=== PATIENT | male | born 1975 | race Hispanic/Latino ===

== ENCOUNTER 2020-10-11 11:07 | Inpatient (IN) | payer BC ==
[2020-10-11] MEDS ORDERED: ONDANSETRON 4 MG/2 ML VIAL ONE (11:30)
[2020-10-11] MEDS ORDERED: MORPHINE 4 MG/ML SYR ONE (11:30)
[2020-10-11] MEDS ORDERED: FAMOTIDINE 20 MG/2 ML VIAL IV ONE (11:39)
[2020-10-11 11:44] LABS: Absolute Lymphocytes (CBC) 2.6 K/uL (0.7-4.9); Basophils % 1.2 % (0-1.3); Hematocrit 52.1 % (39.6-49.0); Lymphocytes % 18.8 % (15.3-44.8); MPV 8.4 fL (7.6-11.3); RBC Red Blood Cell Count 6.11 M/uL (4.33-5.43)
[2020-10-11 11:49] LABS: Protime INR 1.54
[2020-10-11] MEDS ORDERED: LORazepam 2 MG/ML VIAL ONE (12:04)
[2020-10-11] MEDS ORDERED: DIPHENHYDRAMINE 50 MG/ML VIAL ONE (12:05)
--- NOTE | 2020-10-11 13:08 | RAD REPORT ---
EXAM DESCRIPTION: RAD - Chest Single View - 10/11/2020 11:50 am CLINICAL HISTORY: chest pain, abdominal pain Chest pain. COMPARISON: No comparisons FINDINGS: Portable technique limits examination quality. The lungs are grossly clear. Mild elevation of the right hemidiaphragm is seen without clear etiology present. The heart is normal in size. No displaced fractures.
[2020-10-11 13:57] LABS: ALT/SGPT 493 U/L (12-78); Albumin 3.2 g/dL (3.4-5.0); Alkaline Phosphatase 133 U/L (45-117); BUN Blood Urea Nitrogen 18 mg/dL (7-18); Bicarbonate 20 mmol/L (21-32); Bilirubin Direct 0.4 mg/dL (0-0.2); Bilirubin Total 1.5 mg/dL (0.2-1.0); Glucose Level 264 mg/dL (74-106); Lipase 293 U/L (73-393); NT PRO-BNP 23 pg/mL (<125); Protein, Total 7.2 g/dL (6.4-8.2); Sodium Level 135 mmol/L (136-145); Troponin (Emerg Dept Use Only) < 0.02 ng/mL (0.0-0.045)
[2020-10-11 13:58] LABS: Magnesium 1.8 mg/dL (1.8-2.4); Potassium 4.2 mmol/L (3.5-5.1)
[2020-10-11 14:00] LABS: AST/SGOT 779 U/L (15-37)
[2020-10-11] MEDS ORDERED: FENTANYL CITR 100 MCG/2 ML ONE (14:13)
--- NOTE | 2020-10-11 14:36 | RAD REPORT ---
EXAM DESCRIPTION: CT - Abdomen Pelvis W Contrast - 10/11/2020 2:12 pm CLINICAL HISTORY: Abdominal pain COMPARISON: none. TECHNIQUE: Computed axial tomography of the abdomen pelvis was obtained. 100 cc Isovue-300 was admin istered intravenously. Oral contrast was not requested which limits evaluation of bowel. All CT scans are performed using dose optimization technique as appropriate and may include automated exposure control or mA/KV adjustment according to patient size. FINDINGS: The liver is mildly enlarged. Diffuse fatty infiltration. Mild to moderate stranding adjacent to pancreatic head and neck. No pseudocyst. Spleen, adrenals and kidneys unremarkable There is no evidence of diverticulitis. Small inguinal hernias containing fat IMPRESSION: [id number] pancreatitis
--- NOTE | 2020-10-11 14:42 | RAD REPORT ---
EXAM DESCRIPTION: US - Abdomen Exam Limited - 10/11/2020 2:34 pm CLINICAL HISTORY: Abdominal pain. COMPARISON: None. FINDINGS: The gallbladder wall is not thickened. A gallstone is not seen. The biliary tree is normal caliber. Fatty liver IMPRESSION: Unremarkable gallbladder ultrasound. Fatty liver
[2020-10-11 15:22] LABS: Urine Blood Negative (Negative); Urine Glucose 2+ (Negative); Urine Protein 2+ (Negative); Urine pH 5.5 (5.0-7.0)
[2020-10-11] MEDS ORDERED: Ringers Lactate 1,000 ML IV ONE (15:49)
[2020-10-11 16:02] LABS: Barbiturates NEGATIVE (NEGATIVE); Benzodiazepines NEGATIVE (NEGATIVE); Cocaine POSITIVE (NEGATIVE); METHAMPHETAM NEGATIVE (NEGATIVE); Methadone NEGATIVE (NEGATIVE); Opiates POSITIVE (NEGATIVE); Phencyclidine NEGATIVE (NEGATIVE); THC Cannibis NEGATIVE (NEGATIVE)
--- NOTE | 2020-10-11 16:28 | ER ---
Nurse's Notes [facility] Name: Seth Milligan Age: 45 yrs Sex: Male : 1975 Arrival Date: 10/11/2020 Time: 11:08 Bed 27 Private MD: Diagnosis: Acute pancreatitis Presentation: 10/11 11:08 Chief complaint: EMS states: Pt c/o ABD since this morning; Pain mostly in RUQ; pt vg1 denies NVD; Pt has been drinking beer and tequila for the past three days. Pt has Hypertension but does not take his medication. Coronavirus screen: Client denies travel out of the [place] in the last 14 days. Ebola Screen: Patient negative for fever greater than or equal to 101.5 degrees Fahrenheit, and additional compatible Ebola Virus Disease symptoms. Initial Sepsis Screen: Does the patient meet any 2 criteria? No. Patient's initial sepsis screen is negative. Does the patient have a suspected source of infection? No. Patient's initial sepsis screen is negative. Risk Assessment: Do you want to hurt yourself or someone else? Patient reports no desire to harm self or others. Onset of symptoms was October 11, 2020. 11:08 Method Of Arrival: EMS: [facility] vg1 11:08 Acuity: FRANK 3 vg1 Triage Assessment: 11:10 General: Appears in no apparent distress. uncomfortable, Behavior is cooperative, vg1 restless. Pain: Complains of pain in abdomen Pain currently is 10 out of 10 on a pain scale. EENT: No signs and/or symptoms were reported regarding the EENT system. Neuro: Level of Consciousness is awake, alert, obeys commands, Oriented to person, place, time, situation. Cardiovascular: Patient's skin is warm and dry. Respiratory: Airway is patent Respiratory effort is even, unlabored, Respiratory pattern is. GI: Abdomen is round obese, Abdomen is tender to palpation X 4 quads. : No signs and/or symptoms were reported regarding the genitourinary system. Derm: Skin is intact, Skin is pink, warm \T\ dry. Musculoskeletal: Circulation, motion, and sensation intact. Historical: - Allergies: 11:10 No Known Allergies; vg1 - Home Meds: 11:10 Unable to obtain [Active]; vg1 - PMHx: 11:10 Hypertension; vg1 - Immunization history:: Adult Immunizations up to date. - Social history:: Smoking status: Patient denies any tobacco usage or history of. Screenin:13 Abuse screen: Denies threats or abuse. Nutritional screening: No deficits noted. vg1 Tuberculosis screening: No symptoms or risk factors identified. Fall Risk No fall in past 12 months (0 pts). No secondary diagnosis (0 pts). IV access (20 points). Ambulatory Aid- None/Bed Rest/Nurse Assist (0 pts). Gait- Normal/Bed Rest/Wheelchair (0 pts) Mental Status- Oriented to own ability (0 pts). Total Mariscal Fall Scale indicates No Risk (0-24 pts). Assessment: 11:13 Reassessment: See triage. vg1 11:18 Reassessment: Received VO from MARU Weiss to administer Zofran 4 mg and Morphine 4 mg vg1 and Pepcid 20 mg IVP x1. 12:14 Reassessment: Patient appears in no apparent distress at this time. No changes from vg1 previously documented assessment. Patient and/or family updated on plan of care and expected duration. Pain level reassessed. 13:13 Reassessment: Patient appears in no apparent distress at this time. No changes from vg1 previously documented assessment. Patient and/or family updated on plan of care and expected duration. Pain level reassessed. Patient is alert, oriented x 3, equal unlabored respirations, skin warm/dry/pink. 14:00 Reassessment: Patient appears in no apparent distress at this time. No changes from vg1 previously documented assessment. Patient is alert, oriented x 3, equal unlabored respirations, skin warm/dry/pink. Pt stated pain 10/10. 15:35 Reassessment: Patient appears in no apparent distress at this time. No changes from vg1 previously documented assessment. Patient is alert, oriented x 3, equal unlabored respirations, skin warm/dry/pink. 17:22 Reassessment: Called hospitalist INTAKE MAN to get admission orders placed. States he will come sv to see the pt. 18:02 Reassessment: attempted to call report. vg1 18:20 Reassessment: attempted to call report. vg1 18:54 Reassessment: Patient appears in no apparent distress at this time. Patient and/or vg1 family updated on plan of care and expected duration. Pain level reassessed. Patient is alert, oriented x 3, equal unlabored respirations, skin warm/dry/pink. Vital Signs: 11:08 BP 162 / 95; Pulse 86; Resp 22; Temp 98.1; Pulse Ox 97% ; Weight 104.33 kg; Height 5 vg1 ft. 2 in. (157.48 cm); Pain 10/10; 12:14 BP 142 / 68; Pulse 96; Resp 18; Pulse Ox 96% on R/A; vg1 13:13 BP 146 / 96; Pulse 94; Resp 16; Pulse Ox 97% on R/A; vg1 14:04 BP 138 / 88; Pulse 96; Resp 16; Pulse Ox 98% on R/A; vg1 15:12 BP 142 / 84; Pulse 86; Resp 18; Pulse Ox 98% on R/A; vg1 18:44 BP 146 / 88; Pulse 95; Resp 20; Pulse Ox 97% on R/A; vg1 11:08 Body Mass Index 42.07 (104.33 kg, 157.48 cm) vg1 ED Course: 11:08 Patient arrived in ED. vg1 11:10 Triage completed. vg1 11:10 Arm band placed on. vg1 11:12 Maintain EMS IV. Dressing intact. Good blood return noted. Site clean \T\ dry. Gauge \T\ vg 1 site: 18 Right AC. 11:13 Patient has correct armband on for positive identification. Call light in reach. Side vg1 rails up X2. 11:14 Steven Marie PA is [facility] 11:14 Jesus Dillon MD is Attending Physician. m 11:16 Rosa M Maria, RN is Primary Nurse. vg1 11:50 XRAY Chest (1 view) In Process Unspecified. EDMS 12:10 Lab(s) recollected, by me, sent to lab. vg1 13:59 Notified Nurse Practitioner and/or Physician Development Assistant of a critical lab result(s), sv AST-779, ALT-493. 14:12 CT Abd/Pelvis - IV Contrast Only In Process Unspecified. EDMS 14:17 US at bedside. vg1 14:34 US Abdomen Limited In Process Unspecified. EDMS 15:35 COVID swab sent to lab. vg1 16:26 Brian Sauceda DO is Hospitalizing Provider. m 18:44 No provider procedures requiring assistance completed. Patient admitted, IV remains in vg1 place. Administered Medications: 11:15 Drug: morphine 4 mg Route: IVP; Site: right antecubital; ld1 11:50 Follow up: Response: No adverse reaction; Pain is unchanged, physician notified vg1 11:15 Drug: Zofran (Ondansetron) 4 mg Route: IVP; Site: right antecubital; ld1 11:50 Follow up: Response: No adverse reaction vg1 11:26 Drug: Pepcid (famotidine) 20 mg Route: IVP; Site: right antecubital; vg1 11:50 Follow up: Response: No adverse reaction vg1 11:49 Drug: Ativan (LORazepam) 1 mg Route: IVP; Site: right antecubital; vg1 12:15 Follow up: Response: No adverse reaction; RASS: Drowsy (-1) vg1 11:50 Drug: diphenhydrAMINE 25 mg Route: IVP; Site: right antecubital; vg1 12:16 Follow up: Response: No adverse reaction vg1 13:59 Drug: fentaNYL (PF) 50 mcg {Note: RASS 1.} Route: IVP; Site: right antecubital; vg1 16:10 Follow up: Response: No adverse reaction; Pain is unchanged, physician notified; RASS: vg1 Restless (+1) 15:30 Drug: Lactated Ringers Solution 1000 ml Route: IV; Rate: 1000 bolus; Site: right vg1 antecubital; 16:30 Follow up: IV Status: Completed infusion; IV Intake: 1000ml vg1 Intake: 16:30 IV: 1000ml; Total: 1000ml. vg1 Outcome: 16:26 Decision to Hospitalize by Provider. [facility] 18:44 Admitted to Med/surg accompanied by tech, via wheelchair, room 410, with chart, Report vg1 called to BRIGID Yi 18:44 Condition: stable 18:44 Instructed on the need for admit. 18:54 Patient left the ED. vg1 Signatures: Dispatcher [employer] EDEdith Álvarez RN RN sv Mickail, Joel, PA PA jmm Garcia, Victoria, RN RN vg1 Dibbern, Gisselle, RN RN ld1 Corrections: (The following items were deleted from the chart) 11:17 11:08 Chief complaint: EMS states: Pt c/o ABD since this morning; Pain mostly in RUQ; vg1 pt denies NVD; Pt has been drinking beer and tequila for the past three days vg1 14:02 14:00 Reassessment: Patient appears in no apparent distress at this time. No changes vg1 from previously documented assessment. Patient is alert, oriented x 3, equal unlabored respirations, skin warm/dry/pink. Pt stated pain 10/10 vg1 14:03 14:00 Reassessment: Patient appears in no apparent distress at this time. No changes vg1 from previously documented assessment. Patient is alert, oriented x 3, equal unlabored respirations, skin warm/dry/pink. Pt stated pain 10/10. Respirtations 16 at 98% O2 vg1 14:03 14:00 Reassessment: Patient appears in no apparent distress at this time. No changes vg1 from previously documented assessment. Patient is alert, oriented x 3, equal unlabored respirations, skin warm/dry/pink. Pt stated pain 10/10. Respirtations 16 at 98% O2, HR 97 vg1 16:05 15:12 BP 142 / 84; Pulse 86bpm; Resp 98bpm; Pulse Ox 20% RA; vg1 vg1 18:44 15:12 BP 142 / 84; Pulse 86bpm; Resp 18bpm; Pulse Ox 20% RA; vg1 vg1
--- NOTE | 2020-10-11 16:28 | EDPHYS ---
Physician Documentation [facility] Name: Seth Milligan Age: 45 yrs Sex: Male : 1975 Arrival Date: 10/11/2020 Time: 11:08 Bed 27 Private MD: ED Physician Jesus Dillon HPI: 10/11 11:14 This 45 yrs old Male presents to ER via EMS with complaints of Abdominal Pain. jmm 11:14 The patient presents with abdominal pain. Onset: The symptoms/episode began/occurred jmm today. The symptoms do not radiate. Associated signs and symptoms: Pertinent positives: nausea and vomiting. The symptoms are described as achy, sharp. Modifying factors: The symptoms are alleviated by nothing, the symptoms are aggravated by nothing. The patient has not experienced similar symptoms in the past. patient admits to drinking EtOH the past 3 days. . Historical: - Allergies: 11:10 No Known Allergies; vg1 - Home Meds: 11:10 Unable to obtain [Active]; vg1 - PMHx: 11:10 Hypertension; vg1 - Immunization history:: Adult Immunizations up to date. - Social history:: Smoking status: Patient denies any tobacco usage or history of. ROS: 11:14 Constitutional: Negative for fever, chills, and weight loss, Cardiovascular: Negative jmm for chest pain, palpitations, and edema, Respiratory: Negative for shortness of breath, cough, wheezing, and pleuritic chest pain. 11:14 Abdomen/GI: Positive for abdominal pain, nausea and vomiting. 11:14 All other systems are negative. Exam: 11:14 Constitutional: This is a well developed, well nourished patient who is awake, alert, jmm and in no acute distress. Head/Face: atraumatic. Eyes: EOMI, no conjunctival erythema appreciated ENT: Moist Mucus Membranes Neck: Trachea midline, Supple Chest/axilla: Normal chest wall appearance and motion. Cardiovascular: Regular rate and rhythm. No edema appreciated Respiratory: Normal respirations, no respiratory distress appreciated 11:14 Skin: General appearance color normal MS/ Extremity: Moves all extremities, no obvious deformities appreciated, no edema noted to the lower extremities Neuro: Awake and alert, normal gait Psych: Behavior is normal, Mood is normal, Patient is cooperative and pleasant 11:14 Abdomen/GI: Inspection: abdomen appears normal, Bowel sounds: normal, Palpation: soft, moderate abdominal tenderness, in the epigastric area and right upper quadrant. Vital Signs: 11:08 BP 162 / 95; Pulse 86; Resp 22; Temp 98.1; Pulse Ox 97% ; Weight 104.33 kg; Height 5 vg1 ft. 2 in. (157.48 cm); Pain 10/10; 12:14 BP 142 / 68; Pulse 96; Resp 18; Pulse Ox 96% on R/A; vg1 13:13 BP 146 / 96; Pulse 94; Resp 16; Pulse Ox 97% on R/A; vg1 14:04 BP 138 / 88; Pulse 96; Resp 16; Pulse Ox 98% on R/A; vg1 15:12 BP 142 / 84; Pulse 86; Resp 18; Pulse Ox 98% on R/A; vg1 18:44 BP 146 / 88; Pulse 95; Resp 20; Pulse Ox 97% on R/A; vg1 11:08 Body Mass Index 42.07 (104.33 kg, 157.48 cm) vg1 MDM: 11:14 Patient medically screened. [facility] 16:25 Data reviewed: vital signs, nurses notes. Counseling: I had a detailed discussion with suhas the patient and/or guardian regarding: the historical points, exam findings, and any diagnostic results supporting the discharge/admit diagnosis, lab results, radiology results, the need for further work-up and treatment in the hospital. ED course: I discussed the patient with Sanna whom accepted the patient to Dr. Komal fisher. 10/11 11:28 Order name: Basic Metabolic Panel; Complete Time: 14:[address] [facility] 10/11 11:28 Order name: CBC with Diff; Complete Time: 12:[address] [facility] 10/11 11:28 Order name: LFT's; Complete Time: 14:[address] [facility] 10/11 11:28 Order name: Magnesium; Complete Time: 14:[address] [facility] 10/11 11:28 Order name: NT PRO-BNP; Complete Time: 14:[address] [facility] 10/11 11:28 Order name: PT-INR; Complete Time: 12:[address] [facility] 10/11 11:28 Order name: Troponin (emerg Dept Use Only); Complete Time: 14:[address] [facility] 10/11 11:28 Order name: XRAY Chest (1 view); Complete Time: 13:[address] [facility] 10/11 11:28 Order name: Lipase; Complete Time: 14:[address] [facility] 10/11 11:28 Order name: Urine Drug Screen; Complete Time: 16:[address] [facility] 10/11 13:50 Order name: CT Abd/Pelvis - IV Contrast Only; Complete Time: 14:[address] [facility] 10/11 15:22 Order name: Urine Dipstick-Ancillary; Complete Time: 16:18 [facility] 10/11 16:34 Order name: SARS-COV-2 RT PCR; Complete Time: 16:41 [facility] 10/11 11:28 Order name: EKG; Complete Time: 11:[address] [facility] 10/11 11:28 Order name: Cardiac monitoring; Complete Time: 11:[address] [facility] 10/11 11:28 Order name: EKG - Nurse/Tech; Complete Time: 11:[address] [facility] 10/11 11:28 Order name: IV Saline Lock; Complete Time: 11:[address] [facility] 10/11 11:28 Order name: Labs collected and sent; Complete Time: 11:[address] [facility] 10/11 11:28 Order name: O2 Per Protocol; Complete Time: 11:[address] [facility] 10/11 11:28 Order name: O2 Sat Monitoring; Complete Time: 11:[address] [facility] 10/11 11:28 Order name: Urine Dipstick-Ancillary (obtain specimen); Complete Time: 15:[address] [facility] 10/11 14:02 Order name: US Abdomen Limited; Complete Time: 14:[address] [facility] 10/11 12:02 Order name: Labs - recollect needed: recollect green,lav,blue top; Complete Time: 12:16 10/11 12:28 Order name: Labs - recollect needed: recollect green top; Complete Time: 12:42 sv Administered Medications: 11:15 Drug: morphine 4 mg Route: IVP; Site: right antecubital; ld1 11:50 Follow up: Response: No adverse reaction; Pain is unchanged, physician notified vg1 11:15 Drug: Zofran (Ondansetron) 4 mg Route: IVP; Site: right antecubital; ld1 11:50 Follow up: Response: No adverse reaction vg1 11:26 Drug: Pepcid (famotidine) 20 mg Route: IVP; Site: right antecubital; vg1 11:50 Follow up: Response: No adverse reaction vg1 11:49 Drug: Ativan (LORazepam) 1 mg Route: IVP; Site: right antecubital; vg1 12:15 Follow up: Response: No adverse reaction; RASS: Drowsy (-1) vg1 11:50 Drug: diphenhydrAMINE 25 mg Route: IVP; Site: right antecubital; vg1 12:16 Follow up: Response: No adverse reaction vg1 13:59 Drug: fentaNYL (PF) 50 mcg {Note: RASS 1.} Route: IVP; Site: right antecubital; vg1 16:10 Follow up: Response: No adverse reaction; Pain is unchanged, physician notified; RASS: vg1 Restless (+1) 15:30 Drug: Lactated Ringers Solution 1000 ml Route: IV; Rate: 1000 bolus; Site: right vg1 antecubital; 16:30 Follow up: IV Status: Completed infusion; IV Intake: 1000ml vg1 Disposition: 10/11/20 16:26 Hospitalization ordered by Brian Sauceda for Observation. Preliminary diagnosis is Acute pancreatitis. - Bed requested for Telemetry/MedSurg (observation). - Status is Observation. vg1 - Condition is Stable. - Problem is new. - Symptoms are unchanged. Addendum: 10/19/2020 19:05 Co-signature as Attending Physician, Jesus moss Signatures: Dispatcher [employer] EDMS Fabiola Toney Stephanie RN Leigha Greenberg RN RN dw Lam, Pin, MD MD pkl Mickail, Joel, PA PA jmm Garcia, Victoria, RN RN vg1 Gisselle Hoang RN RN ld1 Corrections: (The following items were deleted from the chart) 10/11 15:52 15:20 CORONAVIRUS+MR.LAB.BRZ ordered. EDAR EDAR 18:00 16:26 Hospitalization Ordered by Brian Sauceda DO for Observation. Preliminary diagnosis is Acute pancreatitis. Bed requested for Telemetry/MedSurg (observation). Status is Observation. Condition is Stable. Problem is new. Symptoms are unchanged. [facility] 18:54 18:00 10/11/2020 16:26 Hospitalization Ordered by Brian Sauceda DO for Observation. vg1 Preliminary diagnosis is Acute pancreatitis. Bed requested for Telemetry/MedSurg (observation). Status is Observation. Condition is Stable. Problem is new. Symptoms are unchanged. dw
[2020-10-11] MEDS ORDERED: LABETALOL 20 MG/4ML SYRINGE IV PRN (17:50)
--- NOTE | 2020-10-11 18:02 | P.HP ---
Certification for Inpatient Patient admitted to: Observation With expected LOS: <2 Midnights Patient will require the following post-hospital care: None Practitioner: I am a practitioner with admitting privileges, knowledge of patient current condition, hospital course, and medical plan of care. Services: Services provided to patient in accordance with Admission requirements found in Title 42 Section 412.3 of the Code of Federal Regulations Patient History Date of Service: 10/11/20 Reason for admission: Abdominal pain History of Present Illness: Patient is a 45-year-old male with a past medical history significant for alcohol abuse, drug abuse and hypertension who presents with complaint of generalized abdominal pain onset this morning. Patient reported that he drank heavily yesterday and this morning he started having abdominal pain. Patient rated abdominal pain as 10/10 in severity and described pain as sharp in quality. Patient denies any other signs and symptoms. Symptoms are aggravated or relieved by nothing. Patient decided to present to the hospital due to worsening symptoms. Allergies No Known Allergies Allergy (Verified 10/11/20 18:34) Home medications list reviewed: Yes - Past Medical/Surgical History Has patient received pneumonia vaccine in the past: No -: Alcohol abuse. -: Drug use -: HTN - Family History Family History: Reviewed- Non-Contributory - Family History Father -: Heart disease, Hypertension Mother -: Diabetes - Social History Smoking Status: Unknown if ever smoked Alcohol use: Yes CD- Drugs: No Caffeine use: Yes Place of Residence: Home Review of Systems General: Unremarkable Eyes: Unremarkable ENT: Unremarkable Respiratory: Unremarkable Cardiovascular: Unremarkable Gastrointestinal: Abdominal Pain Genitourinary: Unremarkable Musculoskeletal: Unremarkable Integumentary: Unremarkable Neurological: Unremarkable Lymphatics: Unremarkable Physical Examination - Physical Exam General: Alert, In no apparent distress, Oriented x3 HEENT: Atraumatic, PERRLA, Mucous membr. moist/pink, EOMI, Sclerae nonicteric Neck: Supple, 2+ carotid pulse no bruit, No LAD, Without JVD or thyroid abnormality Respiratory: Clear to auscultation bilaterally, Normal air movement Cardiovascular: No edema, Regular rate/rhythm, Normal S1 S2 Capillary refill: Brisk Gastrointestinal: Normal bowel sounds, Tenderness Musculoskeletal: No clubbing, No tenderness Integumentary: No rashes Neurological: Normal gait, Normal speech, Normal strength at 5/5 x4 extr, Normal tone, Normal affect Lymphatics: No axilla or inguinal lymphadenopathy External genitalia: Deferred Rectal: Deferred - Studies Laboratory Data (last 24 hrs) 10/11/20 13:06: Sodium 135 L, Potassium 4.2, BUN 18, Creatinine 0.78, Glucose 264 H, Magnesium 1.8, Total Bilirubin 1.5 H, AST 779 H*, ALT 493 H*, Alkaline Phosphatase 133 H, Lipase 293 10/11/20 11:25: PT 17.8 H, INR 1.54 10/11/20 11:25: WBC 13.70 H, Hgb 17.5, Hct 52.1 H, Plt Count 340 Assessment and Plan - Plan --Alcohol-induced pancreatitis. Mild-moderate Pancreatitsis noted on imaging. Will keep patient NPO. Continue IV hydration. --Acute pain. Will manage pain with current pain medication regimen. --Alcohol abuse. Patient placed on banana bag, Librium and Ativan p.r.n.. CIWA protocol. --Hypertension. Unstable. Will manage BP with labetalol p.r.n. --Drug use. UDS positive for opiates and cocaine. Patient counseled on drug cessation. --Obesity. Likely secondary to excess calories intake. Patient counseled on diet and exercise therapy. --Leukocytosis. Likely reactive. Blood cultures to rule out other possible causes. Will reassess levels in a.m.. --Transaminitis. Likely secondary to alcohol abuse. Abdominal ultrasound unremarkable for any gallbladder or other acute abdominal abnormality. Will reassess levels in am. Continue supportive care. --DVT prophylaxis with Lovenox subQ Discharge Plan: Home Plan to discharge in: 48 Hours - Advance Directives Does patient have a Living Will: No Does patient have a Durable POA for Healthcare: No - Code Status/Comfort Care Code Status Assessed: Yes Code Status: Full Code Critical Care: No
[2020-10-11] MEDS: HYDROMORPHONE HCL 1 MG/ML INJ IV PRN ×2 (18:39→22:40)
[2020-10-11] MEDS ORDERED: HYDROMORPHONE HCL 2 MG/ML inj ONE (18:57)
[2020-10-11] MEDS ORDERED: ACETAMINOPHEN 650MG/RECT SUPP PR PRN (19:48)
[2020-10-11] MEDS: D5 0.9 NS 1,000 ML IV SCH (20:27)
[2020-10-11] MEDS: chlordiazePOXIDE HCl 25 MG CAP PO SCH ×2 (20:28→23:45)
[2020-10-11] MEDS: LORazepam 2 MG/ML VIAL IV PRN ×2 (20:28→23:44)
[2020-10-11] MEDS: ONDANSETRON 4 MG/2 ML VIAL IV PRN (22:40)
[2020-10-12 00:37] VITALS: BMI 31.3
[2020-10-12] MEDS: chlordiazePOXIDE HCl 25 MG CAP PO SCH ×2 (00:53→06:03)
[2020-10-12] MEDS: HYDROMORPHONE HCL 1 MG/ML INJ IV PRN ×5 (02:53→20:03)
[2020-10-12 03:55] LABS: Absolute Lymphocytes (CBC) 2.3 K/uL (0.7-4.9); Basophils % 0.5 % (0-1.3); Hematocrit 45.3 % (39.6-49.0); Lymphocytes % 14.8 % (15.3-44.8); MPV 8.6 fL (7.6-11.3); RBC Red Blood Cell Count 5.32 M/uL (4.33-5.43)
[2020-10-12 04:03] LABS: HDL Cholesterol 24 mg/dL (40-60)
[2020-10-12 04:15] LABS: LDL, Direct 46 mg/dL (100-129)
[2020-10-12 04:43] LABS: Protein, Total 6.5 g/dL (6.4-8.2)
[2020-10-12 04:44] LABS: Potassium 4.8 mmol/L (3.5-5.1)
[2020-10-12] MEDS: LORazepam 2 MG/ML VIAL IV PRN (05:00)
[2020-10-12] MEDS: D5 0.9 NS 1,000 ML IV SCH ×2 (06:48→20:07)
[2020-10-12] MEDS: ONDANSETRON 4 MG/2 ML VIAL IV PRN (06:48)
[2020-10-12 07:10] LABS: LDL, Direct 42 mg/dL (100-129)
[2020-10-12] MEDS ORDERED: GLUCAGON 1 MG/VIAL IM PRN (08:23)
[2020-10-12] MEDS ORDERED: D50W 25 GM/50 ML SYRINGE IV PRN (08:23)
[2020-10-12] MEDS ORDERED: NA CHLORIDE 0.9% 1,000 ML IV SCH (08:23)
[2020-10-12] MEDS ORDERED: NA CHLORIDE 0.9% 1,000 ML IV ONE (08:23)
[2020-10-12] MEDS ORDERED: SODIUM CHLORIDE 0.9% 10ML INJ IV PRN (08:23)
[2020-10-12] MEDS ORDERED: NA CHLORIDE 0.9% 2,000 ML ONE (08:50)
[2020-10-12] MEDS: INSULIN -REGULAR HUMAN 100 UNIT in NA CHLORIDE 0.9% 100 ML IV SCH (08:54)
[2020-10-12] MEDS ORDERED: FOLIC ACID 1 MG, MULTIVITAMINS INJ 10 ML, THIAMINE HCL 100 MG in NA CHLORIDE 0.9% 1,000 ML IV SCH (09:00)
--- NOTE | 2020-10-12 09:01 | EKG ---
Test Date: 2020-10-11 Test Time: 11:31:57 Apartment Leasing Specialist: JENNIFER MEASUREMENT RESULTS: Intervals: Rate: 83 AR: 126 QRSD: 84 QT: 386 QTc: 453 Kinsley: P: 46 AR: 126 QRS: 72 T: 46 INTERPRETIVE STATEMENTS: Normal sinus rhythm Normal ECG No previous ECG available for comparison Electronically Signed On 10-12-20 08:58:55 CDT by Errol Weston
[2020-10-12] MEDS: HYDRALAZINE HCL 20 MG/ML VIAL IV PRN ×2 (09:10→22:25)
[2020-10-12] MEDS: ENOXAPARIN 40 MG/0.4 ML SQ SCH (09:15)
[2020-10-12] MEDS: PANTOPRAZOLE 40 MG INJ IVP SCH (09:15)
[2020-10-12] MEDS ORDERED: HYDRALAZINE HCL 20 MG/ML VIAL ONE ×2 (09:22→22:41)
[2020-10-12] MEDS ORDERED: PANTOPRAZOLE 40 MG INJ ONE (09:34)
[2020-10-12] MEDS ORDERED: ENOXAPARIN 40 MG/0.4 ML SQ ONE (09:35)
[2020-10-12 10:20] VITALS: O2SAT 95
[2020-10-12] MEDS ORDERED: HYDROMORPHONE HCL 2 MG/ML inj ONE ×2 (11:04→20:18)
[2020-10-12] MEDS ORDERED: HYDROMORPHONE HCL 1 MG/ML INJ ONE ×2 (15:49→20:23)
--- NOTE | 2020-10-12 17:13 | P.PN ---
Subjective Date of Service: 10/12/20 Chief Complaint: Abdominal pain Subjective: Other (Patient still with abdominal pain.) Physical Examination - Vital Signs Temperature: 99.5 F Blood Pressure: 178/97 Pulse: 94 Respirations: 20 Pulse Ox (%): 96 Assessment & Plan Discharge Plan: Home Plan to discharge in: Greater than 2 days Physician Review Additional Text: Physical Exam: GENERAL: The patient is a well-developed, well-nourished, in no apparent distress. Alert and oriented x3. VITAL SIGNS: Reviewed HEENT: Nares dry NECK: Supple. No carotid bruits. No lymphadenopathy or thyromegaly. LUNGS: Clear to auscultation. No crackles or wheezes are heard. HEART: Regular rate and rhythm, no appreciable gallops, rubs, murmurs or extra heart sounds ABDOMEN: Still with epigastric abdominal pain EXTREMITIES: Without any cyanosis, clubbing, rash, lesions or peripheral edema. NEUROLOGIC: The patient is oriented to person, place and time. Strength and sensation are grossly intact. Face is symmetric. SKIN: Normal color, turgor and temperature. No ulcerations or rashes noted. Impression: Epigastric abdominal pain secondary to alcoholic hypertriglyceridemia pancreatitis Acute renal insufficiency likely secondary to above and dehydration Alcohol abuse Hypertension Drug abuse positive for opiates and cocaine Diabetes mellitus type 2 with hyperglycemia Plan: Epigastric abdominal pain secondary to alcoholic hypertriglyceridemia pancreatitis: We will give IV fluid bolus. Patient transition to ICU due to elevated triglyceride level. We will start IV insulin. Monitor triglyceride level. Maintain blood sugar between 150 and 200. Will discontinue IV insulin if triglycerides less than 500. We will continue to monitor closely. Continue aggressive IV fluids. Alcohol cessation addressed in detail. Acute renal insufficiency likely secondary to above and dehydration: Continue with aggressive fluids. Alcohol abuse: We will monitor for withdrawal. Alcohol cessation addressed in detail. Hypertension: We will provide medication. Drug abuse positive for opiates and cocaine: We will provide education on cessation. Diabetes mellitus type 2 with hyperglycemia: Patient to be started on insulin drip. A1c 8.3. Continue as above. Code Status: Full Code DVT prophylaxis: Lovenox Advanced Care Planning-30 minutes: Plan of care for the patient's discharge was discussed in detail with the patient and family. Time Spent Managing Pts Care (In Minutes): 55
[2020-10-12 17:42] LABS: LDL, Direct 35 mg/dL (100-129)
[2020-10-12] MEDS ORDERED: D5 0.45 NS 1,000 ML IV ONE (18:40)
[2020-10-12] MEDS ORDERED: Ringers Lactate 1,000 ML IV ONE (19:00)
[2020-10-12] MEDS ORDERED: D5 0.45 NS 1,000 ML IV SCH (19:00)
[2020-10-13] MEDS: HYDROMORPHONE HCL 1 MG/ML INJ IV PRN ×5 (01:04→23:12)
[2020-10-13] MEDS ORDERED: HYDROMORPHONE HCL 1 MG/ML INJ ONE ×4 (01:21→18:38)
[2020-10-13] MEDS: LORazepam 2 MG/ML VIAL IV PRN ×3 (02:06→16:41)
[2020-10-13] MEDS ORDERED: LORazepam 2 MG/ML VIAL ONE ×3 (02:25→17:01)
[2020-10-13] MEDS: D5 0.9 NS 1,000 ML IV SCH ×4 (03:21→22:40)
[2020-10-13] MEDS ORDERED: D5 0.9 NS 1,000 ML IV ONE ×3 (03:40→19:42)
[2020-10-13 05:50] LABS: ALT/SGPT 286 U/L (12-78); Albumin 2.3 g/dL (3.4-5.0); Alkaline Phosphatase 91 U/L (45-117); BUN Blood Urea Nitrogen 7 mg/dL (7-18); Bicarbonate 28 mmol/L (21-32); Bilirubin Total 2.4 mg/dL (0.2-1.0); Glucose Level 166 mg/dL (74-106); Lipase 248 U/L (73-393); Protein, Total 5.9 g/dL (6.4-8.2); Sodium Level 140 mmol/L (136-145)
[2020-10-13 05:51] LABS: AST/SGOT 300 U/L (15-37); Potassium 3.6 mmol/L (3.5-5.1)
[2020-10-13] MEDS ORDERED: TRAMADOL HCL 50 MG TAB PO PRN (06:03)
[2020-10-13] MEDS: INSULIN -REGULAR HUMAN 100 UNIT in NA CHLORIDE 0.9% 100 ML IV SCH (06:10)
[2020-10-13] MEDS ORDERED: MELATONIN 5 MG TABLET PO SCH (06:15)
[2020-10-13 06:17] LABS: Absolute Lymphocytes (CBC) 1.8 K/uL (0.7-4.9); Basophils % 0.6 % (0-1.3); Hematocrit 38.6 % (39.6-49.0); Lymphocytes % 23.6 % (15.3-44.8); MPV 8.5 fL (7.6-11.3); RBC Red Blood Cell Count 4.54 M/uL (4.33-5.43)
[2020-10-13] MEDS ORDERED: POTASSIUM CL SA 10 MEQ TAB PO ONE ×2 (06:34→08:04)
[2020-10-13 06:37] LABS: LDL, Direct 44 mg/dL (100-129)
[2020-10-13] MEDS: ENOXAPARIN 40 MG/0.4 ML SQ SCH (07:52)
[2020-10-13] MEDS: PANTOPRAZOLE 40 MG INJ IVP SCH (07:53)
[2020-10-13] MEDS ORDERED: PANTOPRAZOLE 40 MG INJ ONE (08:04)
[2020-10-13] MEDS ORDERED: ENOXAPARIN 40 MG/0.4 ML SQ ONE (08:04)
[2020-10-13] MEDS ORDERED: THIAMINE 200 MG/2 ML INJ ONE (08:04)
[2020-10-13] MEDS: HYDROCODONE/APAP 7.5/325 MG TAB PO PRN ×2 (08:07→15:42)
[2020-10-13] MEDS ORDERED: FOLIC ACID 5 MG/ML VIAL ONE (08:07)
[2020-10-13] MEDS ORDERED: HYDROCODONE/APAP 7.5/325 MG TAB ONE ×2 (08:27→16:01)
--- NOTE | 2020-10-13 08:55 | P.PN ---
Subjective Date of Service: 10/13/20 Chief Complaint: Abdominal pain Subjective: Improving, Doing well (Less epigastric abdominal pain. No significant nausea or vomiting.) Physical Examination - Vital Signs Temperature: 98.7 F Blood Pressure: 156/97 Pulse: 70 Respirations: 16 Pulse Ox (%): 94 Assessment & Plan Discharge Plan: Home Plan to discharge in: 72 Hours Physician Review Additional Text: Physical Exam: GENERAL: The patient is a well-developed, well-nourished, in no apparent distress. Alert and oriented x3. VITAL SIGNS: Reviewed HEENT: Nares dry NECK: Supple. No carotid bruits. No lymphadenopathy or thyromegaly. LUNGS: Clear to auscultation. No crackles or wheezes are heard. HEART: Regular rate and rhythm, no appreciable gallops, rubs, murmurs or extra heart sounds ABDOMEN: Epigastric pain improved. Good bowel movement. EXTREMITIES: Without any cyanosis, clubbing, rash, lesions or peripheral edema. NEUROLOGIC: The patient is oriented to person, place and time. Strength and sensation are grossly intact. Face is symmetric. SKIN: Normal color, turgor and temperature. No ulcerations or rashes noted. Impression: Epigastric abdominal pain secondary to alcoholic hypertriglyceridemia pancreatitis Acute renal insufficiency likely secondary to above and dehydration Elevated liver function likely related to above, fatty liver and alcohol abuse alcohol abuse Hypertension Drug abuse positive for opiates and cocaine Diabetes mellitus type 2 with hyperglycemia Plan: Epigastric abdominal pain secondary to alcoholic hypertriglyceridemia pancreatitis: Patient remains on IV insulin. Triglyceride level around 800. Continue to monitor triglyceride level. Once triglyceride level less than 500 then will discontinue IV insulin and transition to the floor. Continue with IV fluids. We will start clear liquid diet. Continue to provide medication for pain. DVT prophylaxis in place. Encourage ambulation. Encourage incentive spirometer. Anticipate continued improvement over the next 72 hours. Acute renal insufficiency likely secondary to above and dehydration: Overall improved. Continue aggressive IV fluids. Will start clear liquid diet. Elevated liver function likely related to above, fatty liver and alcohol abuse: LFTs improved. Continue to trend LFTs. Will obtain HIV and hepatitis panel. CT and liver ultrasound reviewed. Fatty liver noted. No obstruction identified. Alcohol abuse: No evidence of withdrawal at this time. Continue to monitor closely. Will provide medication as needed. Continue thiamine and folic acid. Continue to address alcohol cessation Hypertension: We will provide IV medication at this time. Will transition to oral medication Drug abuse positive for opiates and cocaine: We will address risk of continued use of cocaine. Cessation to be addressed in detail as well. Diabetes mellitus type 2 with hyperglycemia: Continue insulin drip until triglyceride level less than 500. A1c 8.3. Continue as above. Will consider transition to oral medication at discharge Code Status: Full Code DVT prophylaxis: Lovenox Advanced Care Planning-30 minutes: Plan of care for the patient's discharge was discussed in detail with the patient. Patient desires to go home at discharge. Time Spent Managing Pts Care (In Minutes): 55
[2020-10-13] MEDS ORDERED: FOLIC ACID 5 MG/ML VIAL IVP SCH (09:00)
[2020-10-13] MEDS ORDERED: THIAMINE 200 MG/2 ML INJ IVP SCH (09:00)
[2020-10-13] MEDS ORDERED: FOLIC ACID 1 MG in NA CHLORIDE 0.9% 50 ML IV SCH (09:00)
[2020-10-13] MEDS: HYDRALAZINE HCL 20 MG/ML VIAL IV PRN ×3 (09:37→23:42)
[2020-10-13] MEDS ORDERED: HYDRALAZINE HCL 20 MG/ML VIAL ONE ×2 (09:55→18:41)
[2020-10-13] MEDS ORDERED: D50W 25 GM/50 ML VIAL IV PRN (15:00)
[2020-10-13 17:15] LABS: LDL, Direct 62 mg/dL (100-129)
[2020-10-13] MEDS ORDERED: ACETAMINOPHEN 160 MG/5 ML UCUP ONE (18:20)
[2020-10-13] MEDS ORDERED: KETAMINE HCL 500 MG/5 ML VIAL ONE (19:55)
[2020-10-13] MEDS ORDERED: propofoL 200 MG/20 ML VIAL IV ONE (19:56)
[2020-10-13] MEDS ORDERED: DOCOSAHEXANOIC AC/EPA 1000 MG PO SCH (21:00)
[2020-10-13] MEDS: gemfibroziL 600 MG TAB PO SCH (21:12)
[2020-10-13] MEDS: THIAMINE HCL 100 MG TABLET PO SCH (21:13)
[2020-10-14] MEDS: LORazepam 2 MG/ML VIAL IV PRN (01:37)
[2020-10-14] MEDS: D5 0.9 NS 1,000 ML IV SCH (01:37)
[2020-10-14] MEDS: HYDROCODONE/APAP 7.5/325 MG TAB PO PRN (04:20)
[2020-10-14] MEDS: HYDROMORPHONE HCL 1 MG/ML INJ IV PRN (05:11)
[2020-10-14] MEDS ORDERED: METOPROLOL TAR 25 MG TAB PO SCH (06:00)
[2020-10-14] MEDS: HYDRALAZINE HCL 20 MG/ML VIAL IV PRN (06:02)
[2020-10-14 06:10] LABS: Absolute Lymphocytes (CBC) 1.7 K/uL (0.7-4.9); Basophils % 0.3 % (0-1.3); Hematocrit 36.1 % (39.6-49.0); Lymphocytes % 28.9 % (15.3-44.8); MPV 9.2 fL (7.6-11.3); RBC Red Blood Cell Count 4.21 M/uL (4.33-5.43)
[2020-10-14 06:28] LABS: ALT/SGPT 185 U/L (12-78); AST/SGOT 145 U/L (15-37); Albumin 2.4 g/dL (3.4-5.0); Alkaline Phosphatase 76 U/L (45-117); BUN Blood Urea Nitrogen 4 mg/dL (7-18); Bicarbonate 26 mmol/L (21-32); Bilirubin Total 1.4 mg/dL (0.2-1.0); Glucose Level 199 mg/dL (74-106); Lipase 447 U/L (73-393); Potassium 3.4 mmol/L (3.5-5.1); Protein, Total 5.7 g/dL (6.4-8.2); Sodium Level 137 mmol/L (136-145)
[2020-10-14 06:42] LABS: LDL, Direct 90 mg/dL (100-129)
[2020-10-14] MEDS ORDERED: D5 0.9 NS 1,000 ML IV SCH (07:00)
[2020-10-14] MEDS ORDERED: METFORMIN HCL 500 MG TAB PO SCH (08:00)
[2020-10-14 08:06] VITALS: TEMP 98.3
[2020-10-14] MEDS ORDERED: DOCOSAHEXANOIC AC/EPA 1000 MG PO SCH (09:00)
[2020-10-14] MEDS ORDERED: FOLIC ACID 1 MG TABLET PO SCH (09:00)
[2020-10-14] MEDS ORDERED: POTASSIUM CL SA 10 MEQ TAB PO ONE (09:47)
[2020-10-14] MEDS: gemfibroziL 600 MG TAB PO SCH (09:48)
[2020-10-14] MEDS: ENOXAPARIN 40 MG/0.4 ML SQ SCH (09:49)
[2020-10-14] MEDS: THIAMINE HCL 100 MG TABLET PO SCH (09:53)
[2020-10-14 12:04] VITALS: BP 142/88
--- NOTE | 2020-10-14 12:34 | P.PN ---
Subjective Date of Service: 10/14/20 Chief Complaint: Abdominal pain Subjective: Improving, Doing well (No significant nausea vomiting. No significant abdominal pain noted. Patient able tolerate full liquid diet.) Physical Examination - Vital Signs Temperature: 98.3 F Blood Pressure: 142/88 Pulse: 69 Respirations: 18 Pulse Ox (%): 96 Assessment & Plan Discharge Plan: Home Plan to discharge in: 24 Hours Physician Review Additional Text: Physical Exam: GENERAL: The patient is a well-developed, well-nourished, in no apparent distress. Alert and oriented x3. VITAL SIGNS: Reviewed HEENT: Nares dry NECK: Supple. No carotid bruits. No lymphadenopathy or thyromegaly. LUNGS: Clear to auscultation. No crackles or wheezes are heard. HEART: Regular rate and rhythm, no appreciable gallops, rubs, murmurs or extra h eart sounds ABDOMEN: No significant abdominal pain noted bowel sounds. EXTREMITIES: Without any cyanosis, clubbing, rash, lesions or peripheral edema. NEUROLOGIC: The patient is oriented to person, place and time. Strength and sensation are grossly intact. Face is symmetric. SKIN: Normal color, turgor and temperature. No ulcerations or rashes noted. Impression: Epigastric abdominal pain secondary to alcoholic hypertriglyceridemia pancreatitis Acute renal insufficiency likely secondary to above and dehydration Elevated liver function likely related to above, fatty liver and alcohol abuse alcohol abuse Hypertension Drug abuse positive for opiates and cocaine Diabetes mellitus type 2 with hyperglycemia Plan: Epigastric abdominal pain secondary to alcoholic hypertriglyceridemia pancreatitis: Continue IV fluids. Encourage oral intake. Will advance diet to ADA diet. Triglycerides significantly improved. Continue with Lopid, fish oil. Will start metformin for diabetes. Encourage ambulation. Continue DVT prophylaxis. Anticipate continued improvement. Possible discharge later today if significantly improved if not tomorrow. Acute renal insufficiency likely secondary to above and dehydration: Overall improved. Encourage oral intake. IV fluids adjusted.. Elevated liver function likely related to above, fatty liver and alcohol abuse: LFTs continued to improve. Continue to trend LFTs. Will obtain HIV and hepatitis panel. CT and liver ultrasound reviewed. Fatty liver noted. No obstruction identified. Alcohol abuse: No evidence of withdrawal at this time. Continue to monitor closely. Will provide medication as needed. Continue thiamine and folic acid. Continue to address alcohol cessation Hypertension: Will start metoprolol for better blood pressure control. Drug abuse positive for opiates and cocaine: Addressed continued risk of cocaine. Patient understands this in detail. Cessation to be addressed in detail as well. Diabetes mellitus type 2 with hyperglycemia: A1c 8.3. Will start metformin. Diabetic education addressed in detail. Continued insulin sliding scale. Code Status: Full Code DVT prophylaxis: Lovenox Advanced Care Planning-30 minutes: Plan of care for the patient's discharge was discussed in detail with the khanh shaw. Patient desires to go home at discharge. Time Spent Managing Pts Care (In Minutes): 55
--- NOTE | 2020-10-14 13:47 | P.DS ---
Admission Date: 10/11/20 Discharge Date: 10/14/20 Primary Care Provider: George Disposition: ROUTINE DISCHARGE Discharge Condition: GOOD Reason for Admission: Abdominal pain Consultations: GI-Dr. Madera Procedures: COVID: Negative CT scan: COMPARISON: none. TECHNIQUE: Computed axial tomography of the abdomen pelvis was obtained. 100 cc Isovue-300 was administered intravenously. Oral contrast was not requested which limits evaluation of bowel. All CT scans are performed using dose optimization technique as appropriate and may include automated exposure control or mA/KV adjustment according to patient size. FINDINGS: The liver is mildly enlarged. Diffuse fatty infiltration. Mild to moderate stranding adjacent to pancreatic head and neck. No pseudocyst. Spleen, adrenals and kidneys unremarkable There is no evidence of diverticulitis. Small inguinal hernias containing fat IMPRESSION: Qjia-qs-fioriczr pancreatitis ABUS: COMPARISON: None. FINDINGS: The gallbladder wall is not thickened. A gallstone is not seen. The biliary tree is normal caliber. Fatty liver IMPRESSION: Unremarkable gallbladder ultrasound. Fatty liver CXR: COMPARISON: No comparisons FINDINGS: Portable technique limits examination quality. The lungs are grossly clear. Mild elevation of the right hemidiaphragm is seen without clear etiology present. The heart is normal in size. No displaced fractures. Medical Problem List: Epigastric abdominal pain secondary to alcoholic hypertriglyceridemia pancreatitis Acute renal insufficiency likely secondary to above and dehydration Elevated liver function likely related to above, fatty liver and alcohol abuse Alcohol abuse Hypertension Drug abuse, positive for cocaine Diabetes mellitus type 2 with hyperglycemia Brief History of Present Illness: 45-year-old male with history of diabetes, hypertension, alcohol abuse presented to the emergency room with abdominal pain. Patient found to have acute pancreatitis. Patient was admitted for treatment. Hospital Course: Patient presented with epigastric abdominal pain. This was secondary to alcoholic hypertriglyceridemia pancreatitis. Patient required ICU hospitalization with aggressive IV fluid hydration and IV insulin. His condition improved. GI was consulted. Liver ultrasound also showed fatty liver. CT scan revealed mild to moderate pancreatitis. The patient condition improved. Patient was able to get off the insulin drip. His diet was advanced. Lab improved. At discharge patient able the tolerate diet without significant nausea, vomiting or abdominal pain. At discharge education on hypertriglyceridemia, alcohol abuse, diabetes, hypertension and narcotic abuse address in detail. At discharge the patient will continue with a 2000 ADA diet. Patient will continue with folic acid 1 mg daily, thiamine 100 mg daily, Lopid 600 mg 1 pill twice daily, and fish oil 2000 mg twice daily. A limited supply of tramadol 50 mg 1 pill 3 times a day as needed for pain will be provided. Patient will follow up with PCP-Dr. Olivo to establish care and follow up this hospitalization. It is recommended that he follow up with GI to further monitor and address his pancreatitis. As mentioned above patient with hypertriglyceridemia. Lifestyle modification education provided. At discharge patient will continue with Lopid 600 mg 1 pill twice daily and fish oil 2000 mg 1 pill twice daily. Recommend to recheck fasting lipid panel in 4-6 weeks to monitor his progress. Further adjustment in medication may be required. Dietary changes instructed. Patient with diabetes mellitus type 2. Hemoglobin A1c 8.3. Lifestyle modification education provided. At discharge patient will continue with metformin 500 mg 1 pill twice daily with food. Recommend to maintain blood sugar less than 140 fasting and less than 200 after meals. Recommend recheck hemoglobin A1c in 3 months to monitors progress. If blood sugars remain above 200 consistently further adjustment in medication may be required. Patient will follow up with a PCP in the local area to monitor his progress and get better strict control of his diabetes. Diabetic education provided in detail. Patient with hypertension. Medication was initiated. At discharge patient will continue with metoprolol 12.5 mg 1 pill twice daily. Recommend to maintain blood pressure less than 130/80. Further adjustment can be done by his PCP. Education on hypertension provided. Patient noted to have fatty liver. Education provided. Recommend follow up with GI as an outpatient to further address. Lifestyle modification education provided with weight loss recommended. Patient was positive for cocaine. Cessation education provided in detail. Risks of cocaine including will be provided. Patient with alcohol abuse. Alcohol cessation education provided in detail especially in light of his pancreatitis. This needs to be monitored closely as an outpatient. Vital Signs/Physical Exam: Temp Pulse Resp BP Pulse Ox 98.3 F 69 18 142/88 H 96 10/14/20 12:34 10/14/20 12:34 10/14/20 12:34 10/14/20 12:34 10/14/20 12:34 General: Alert, In no apparent distress, Oriented x3, Cooperative HEENT: Atraumatic Neck: Supple Respiratory: Clear to auscultation bilaterally, Normal air movement Cardiovascular: Normal pulses, Regular rate/rhythm Gastrointestinal: Normal bowel sounds, Soft and benign, Non-distended, No tenderness, No masses, No rebound, No guarding Musculoskeletal: No erythema, No tenderness, No warmth Integumentary: No tenderness/swelling, No erythema, No warmth, No cyanosis Neurological: Normal speech, Normal strength at 5/5 x4 extr, Normal tone, Normal affect Laboratory Data at Discharge: WBC 5.70 K/uL (4.3-10.9) D 10/14/20 05:10 Hgb 12.3 g/dL (13.6-17.9) L 10/14/20 05:10 Hct 36.1 % (39.6-49.0) L 10/14/20 05:10 Plt Count 130 K/uL (152-406) L 10/14/20 05:10 PT 17.8 SECONDS (9.5-12.5) H 10/11/20 11:25 INR 1.54 10/11/20 11:25 Sodium 137 mmol/L (136-145) 10/14/20 05:10 Potassium 3.4 mmol/L (3.5-5.1) L 10/14/20 05:10 BUN 4 mg/dL (7-18) L 10/14/20 05:10 Creatinine 0.58 mg/dL (0.55-1.3) 10/14/20 05:10 Glucose 199 mg/dL (74-106) H 10/14/20 05:10 Magnesium 1.7 mg/dL (1.8-2.4) L 10/13/20 05:07 Total Bilirubin 1.4 mg/dL (0.2-1.0) H 10/14/20 05:10 AST 145 U/L (15-37) H D 10/14/20 05:10 ALT 185 U/L (12-78) H D 10/14/20 05:10 Alkaline Phosphatase 76 U/L (45-117) 10/14/20 05:10 Troponin I 0.02 ng/mL (0.0-0.045) 10/11/20 20:05 Triglycerides 505 mg/dL (<150) H 10/14/20 05:10 Cholesterol 275 mg/dL (<200) H 10/12/20 03:18 LDL Cholesterol Direct 90 mg/dL (100-129) L 10/14/20 05:10 HDL Cholesterol 24 mg/dL (40-60) L 10/12/20 03:18 Cholesterol/HDL Ratio 11.46 10/12/20 03:18 Lipase 447 U/L (73-393) H 10/14/20 05:10 Home Medications: Aspirin [Aspirin EC 81 MG] 81 mg PO DAILY #30 tablet. 10/14/20 Docosahexanoic AC/Epa [Fish Oil 1,000 MG CAP] 2 cap PO BID #120 cap 10/14/20 Folic Acid 1 mg PO DAILY #90 tablet 10/14/20 Melatonin 5 mg PO BEDTIME PRN PRN #30 tablet 10/14/20 Metformin HCl [Glucophage*] 500 mg PO BIDWM #60 tab 10/14/20 Metoprolol Tartrate [Lopressor*] 12.5 mg PO BID #60 tab 10/14/20 Thiamine HCl [Vitamin B-1*] 100 mg PO DAILY #90 tablet 10/14/20 gemfibroziL [Lopid*] 600 mg PO BID #60 tab 10/14/20 traMADol HCL [Ultram*] 50 mg PO TID PRN #10 tab 10/14/20 New Medications: Aspirin [Aspirin EC 81 MG] 81 mg PO DAILY #30 tablet. Docshivanihexanoic AC/Epa [Fish Oil 1,000 MG CAP] 2 cap PO BID #120 cap Folic Acid 1 mg PO DAILY #90 tablet Metformin HCl [Glucophage*] 500 mg PO BIDWM #60 tab gemfibroziL [Lopid*] 600 mg PO BID #60 tab Metoprolol Tartrate [Lopressor*] 12.5 mg PO BID #60 tab Melatonin 5 mg PO BEDTIME PRN PRN #30 tablet PRN Reason: Insomnia traMADol HCL [Ultram*] 50 mg PO TID PRN #10 tab PRN Reason: Pain Scale 2-4 (Mild) Thiamine HCl [Vitamin B-1*] 100 mg PO DAILY #90 tablet Physician Discharge Instructions: Patient presented with epigastric abdominal pain. This was secondary to alcoholic hypertriglyceridemia pancreatitis. Patient required ICU hospitalization with aggressive IV fluid hydration and IV insulin. His condition improved. GI was consulted. Liver ultrasound also showed fatty liver. CT scan revealed mild to moderate pancreatitis. The patient condition improved. Patient was able to get off the insulin drip. His diet was advanced. Lab improved. At discharge patient able the tolerate diet without significant nausea, vomiting or abdominal pain. At discharge education on hypertriglyceridemia, alcohol abuse, diabetes, hypertension and narcotic abuse address in detail. At discharge the patient will continue with a 2000 ADA diet. Patient will continue with folic acid 1 mg daily, thiamine 100 mg daily, Lopid 600 mg 1 pill twice daily, and fish oil 2000 mg twice daily. A limited supply of tramadol 50 mg 1 pill 3 times a day as needed for pain will be provided. Patient will follow up with PCP-Dr. Olivo to establish care and follow up this hospitalization. It is recommended that he follow up with GI to further monitor and address his pancreatitis. As mentioned above patient with hypertriglyceridemia. Lifestyle modification education provided. At discharge patient will continue with Lopid 600 mg 1 pill twice daily and fish oil 2000 mg 1 pill twice daily. Recommend to recheck fasting lipid panel in 4-6 weeks to monitor his progress. Further adjustment in medication may be required. Dietary changes instructed. Patient with diabetes mellitus type 2. Hemoglobin A1c 8.3. Lifestyle modification education provided. At discharge patient will continue with metformin 500 mg 1 pill twice daily with food. Recommend to maintain blood sugar less than 140 fasting and less than 200 after meals. Recommend recheck hemoglobin A1c in 3 months to monitors progress. If blood sugars remain above 200 consistently further adjustment in medication may be required. Patient will follow up with a PCP in the local area to monitor his progress and get better strict control of his diabetes. Diabetic education provided in detail. Patient with hypertension. Medication was initiated. At discharge patient will continue with metoprolol 12.5 mg 1 pill twice daily. Recommend to maintain blood pressure less than 130/80. Further adjustment can be done by his PCP. Education on hypertension provided. Patient noted to have fatty liver. Education provided. Recommend follow up with GI as an outpatient to further address. Lifestyle modification education provided with weight loss recommended. Patient was positive for cocaine. Cessation education provided in detail. Risks of cocaine including will be provided. Patient with alcohol abuse. Alcohol cessation education provided in detail especially in light of his pancreatitis. This needs to be monitored closely as an outpatient. Diet: ADA Activity: Ad johanna Followup: NONE,NONE [Primary Care Provider] - Time spent managing pt's care (in minutes): 55
[2020-10-16 03:19] LABS: HBsAG Nonreactive (Nonreactive)
[2020-10-17 16:01] LABS: HIV AG/AB 4TH GEN Non-reactive (Non-reactive)
== END 2020-10-14 15:42 | disposition home or self-care (01) | DRG 439 ==
LOC: ER 11:07 → ERHOLD 17:46 → 4TH 18:44 → ERHOLD 10-12 08:15 → 2ND 10-13 20:59
PROVIDERS: ADMIT Family Medicine; ATTEND Family Medicine
DX: K85.20 Alcohol induced acute pancreatitis without necrosis or infection (principal); F10.180 Alcohol abuse with alcohol-induced anxiety disorder; N28.9 Disorder of kidney and ureter, unspecified; E86.0 Dehydration; E78.1 Pure hyperglyceridemia; I10 Essential (primary) hypertension; F14.10 Cocaine abuse, uncomplicated; E11.65 Type 2 diabetes mellitus with hyperglycemia; R94.5 Abnormal results of liver function studies; E66.9 Obesity, unspecified; Z68.31 Body mass index [BMI] 31.0-31.9, adult; Z20.822 Contact with and (suspected) exposure to COVID-19
CPT/HCPCS: 36415; 71045; 74177; 76705; 80048; 80053; 80061; 80074; 80076; 80307; 81003; 82947; 83036; 83690; 83735; 83880; 84478; 84484; 85025; 85610; 87040; 87389; 93005; 94010; 96361; 96374; 96375; 99285; C9113; J0360; J1170; J1200; J1650; J2405; J2704; J3010; J3411; J7030; J7042; J7120; J7799; Q9967; U0003

== ENCOUNTER 2021-01-12 09:50 | Emergency (ER) | payer BC ==
--- OUTSIDE RECORDS SUMMARY | 2021-01-12 09:53 | XMS REPORT | Continuity of Care Document ---
:1975 Author Organization [facility] t Address [address] [place] [address] Care Team Providers Name Role Phone Ghislaine Layne Attending Clinician Unavailable Physician, Primary or Family Admitting Clinician Unavailabl e Payers Payer Name Policy Type Policy Number Effective Date Expiration Date S ource Problems This patient has no known problems. Allergies, Adverse Reactions, Alerts Allergy Allergy Status Severity Reaction(s) Onset Inactive Treating Comm ents Source Name Type Date Date Clinician No Known DA Active U [facility] Allergie 12-15 [facility] 00:00: [facility] [place] 00 are [place] Medications This patient has no known medications. Procedures This patient has no known procedures. Encounters Start End Encounter Admission Attending Care Care Encounter Source Date/Time Date/Time Type Type Clinicians Facility Department ID 2020-12-15 2020-12-15 Emergency EM GUNNAR Layne EO3 [id number] [facility] 16:35:00 18:47:00 Ghislaine [id number] [facility] on [facility] [place] are [place] Results Test Description Test Time Test Comments Results Result [facility] e Comments - XR SHOULDER 2 + 2020-12-15 V [facility]:09[facility] 1975 Sex: M Moise staciehayley Name: ERMIAS GONZALEZ Unit No: [id number] EXAMS: CPT: [id number] XR SHOULDER 2 + [place] [id number] RADIOGRAPH: Right shoulder 3 views COMPARISON: None CLINICAL HISTORY: Injury FINDINGS: No acute fracture or dislocation identified. Degenerative changes are seen in the AC joint. No suspicious osseous lesions seen. IMPRESSION: No acute fracture or dislocation identified. at 1809 Reported and signed by: Markos Hoffman MD CC: Ghislaine Layne MD Technologist: SARWAT SHELTON Trscr Dt/Tm: 12/15/2020 (1808) by:Keya Orig Print D/T: S: 12/15/2020 (1811) BATCH NO: N/A Name: ERMIAS GONZALEZ [facility] Emergency Dept Phys: [email or web address] - Ghislaine Layne [id number] [facility] : 1975 Age: 45 Sex: [place] [id number] Loc: [facility] Exam Date: 12/15/2020 Status: REG ER PH: [phone] FAX: PAGE 1 Signed Report - XR L-SPINE 06/212020-12-15 VIEWS 18:07:00 [facility] 1975 Sex: M Moise shaw Name: ERMIAS GONZALEZ Unit No: [id number] EXAMS: CPT: [id number] XR L-SPINE 2/3 VIEWS 00894 LUMBAR SPINE 3 VIEWS: COMPARISON: None CLINICAL HISTORY: Injury FINDINGS: No acute fracture or subluxation identified. Vertebral body height are well-maintained. Multileveled mild degenerative changes are seen throughout the lumbar spine worse at L4-L5 and L5-S1 with mild disc space narrowing, endplate sclerosis, osteophyte formation, and facet arthropathy. IMPRESSION: No acute fracture or subluxation. Mild degenerative changes are seen. at 1807 Reported and signed by: Markos Hoffman MD CC: Ghislaine Layne MD Technologist: SARWAT SHELTON [facility] Dt/Tm: 12/15/2020 (1806) by:HongHNN Orig Print D/T: S: 12/15/2020 (1809) BATCH NO: N/A Name: ERMIAS GONZALEZ [facility] Emergency Dept Phys: [email or web address] - Ghislaine Layne [id number] [facility] : 1975 Age: 45 Sex: [place] [address] Loc: [facility] Exam Date: 12/15/2020 Status: REG ER PH: [phone] FAX: PAGE 1 Signed Report
[2021-01-12] MEDS ORDERED: KETAMINE HCL 500 MG/5 ML VIAL ONE ×2 (10:06→15:31)
[2021-01-12 10:07] LABS: Urine Blood Trace-lysed (Negative); Urine Glucose 2+ (Negative); Urine Protein 1+ (Negative); Urine Specific Gravity <=1.005 (1.005-1.030)
[2021-01-12 10:21] LABS: Absolute Lymphocytes (CBC) 3.2 K/uL (0.7-4.9); Basophils % 0.3 % (0-1.3); Hematocrit 50.9 % (39.6-49.0); Lymphocytes % 34.5 % (15.3-44.8); MPV 7.7 fL (7.6-11.3); RBC Red Blood Cell Count 5.92 M/uL (4.33-5.43)
[2021-01-12 10:22] LABS: Protime INR 1.41
[2021-01-12 10:34] LABS: Barbiturates NEGATIVE (NEGATIVE); Benzodiazepines NEGATIVE (NEGATIVE); Cocaine NEGATIVE (NEGATIVE); METHAMPHETAM NEGATIVE (NEGATIVE); Methadone NEGATIVE (NEGATIVE); Opiates NEGATIVE (NEGATIVE); Phencyclidine NEGATIVE (NEGATIVE); THC Cannibis NEGATIVE (NEGATIVE)
[2021-01-12] MEDS ORDERED: DIPHENHYDRAMINE 50 MG/ML VIAL ONE (10:40)
[2021-01-12] MEDS ORDERED: HALOPERIDOL LACT 5 MG/ML INJ ONE (10:41)
[2021-01-12] MEDS ORDERED: NA CHLORIDE 0.9% 1,000 ML with MULTIVITAMINS INJ 10 ML, THIAMINE HCL 100 MG, FOLIC ACID... IV ONE ×4 (11:00)
[2021-01-12] MEDS ORDERED: Ringers Lactate 1,000 ML IV ONE (11:08)
[2021-01-12 11:37] LABS: ALT/SGPT 427 U/L (12-78); AST/SGOT 665 U/L (15-37); Albumin 3.9 g/dL (3.4-5.0); Alkaline Phosphatase 132 U/L (45-117); BUN Blood Urea Nitrogen 17 mg/dL (7-18); Bicarbonate 24 mmol/L (21-32); Bilirubin Direct 0.3 mg/dL (0-0.2); Bilirubin Total 0.5 mg/dL (0.2-1.0); Potassium 4.1 mmol/L (3.5-5.1); Protein, Total 8.5 g/dL (6.4-8.2); Sodium Level 133 mmol/L (136-145)
[2021-01-12 11:38] LABS: Glucose Level 550 mg/dL (74-106)
[2021-01-12] MEDS ORDERED: LABETALOL 20 MG/4ML SYRINGE IV ONE (11:50)
[2021-01-12] MEDS ORDERED: LORazepam 2 MG/ML VIAL ONE (13:29)
[2021-01-12] MEDS ORDERED: NA CHLORIDE 0.9% 1,000 ML ONE (17:41)
[2021-01-12 21:27] LABS: Arterial Blood Carboxyhemoglob 0.9 % (0-1.5); Blood Gas Oxyhemoglobin 93.6 % (94-97); Blood O2 Saturation 95.6 % (92-98.5)
--- NOTE | 2021-01-13 01:20 | EDPHYS ---
Physician Documentation [facility] Name: Seth Milligan Age: 45 yrs Sex: Male : 1975 Arrival Date: 01/12/2021 Time: 09:55 Bed 30 Private MD: ED Physician Richard Mesa HPI: 01/12 17:33 This 45 yrs old Male presents to ER via EMS with complaints of Substance abuse jr8 Suicidal Ideation. 17:33 Onset: The symptoms/episode began/occurred acutely, today. Associated signs and jr8 symptoms: Pertinent positives; substance abuse, suicide ideation. Severity of symptoms: At their worst the symptoms were moderate in the emergency department the symptoms are unchanged. It is unknown whether or not the patient has had similar symptoms in the past. It is unknown whether or not the patient has recently seen a physician. Historical: - Allergies: :59 No Known Allergies; hb - PMHx: :59 Hypertension; hb - Immunization history:: Adult Immunizations unknown. - Social history:: Smoking status: unknown. ROS: 01/13 01:18 Cardiovascular: Negative for chest pain, palpitations, and edema, Respiratory: Negative jmm for shortness of breath, cough, wheezing, and pleuritic chest pain, Abdomen/GI: Negative for abdominal pain, nausea, vomiting, diarrhea, and constipation. Constitutional: Positive for body aches. Exam: 01/12 12:44 Head/Face: Normocephalic, atraumatic. Eyes: Pupils equal round and reactive to light, jr8 extra-ocular motions intact. Lids and lashes normal. Conjunctiva and sclera are non-icteric and not injected. Cornea within normal limits. Periorbital areas with no swelling, redness, or edema. ENT: Nares patent. No nasal discharge, no septal abnormalities noted. Tympanic membranes are normal and external auditory canals are clear. Oropharynx with no redness, swelling, or masses, exudates, or evidence of obstruction, uvula midline. Mucous membranes moist. Neck: Trachea midline, no thyromegaly or masses palpated, and no cervical lymphadenopathy. Supple, full range of motion without nuchal rigidity, or vertebral point tenderness. No Meningismus. Respiratory: Lungs have equal breath sounds bilaterally, clear to auscultation and percussion. No rales, rhonchi or wheezes noted. No increased work of breathing, no retractions or nasal flaring. Abdomen/GI: Soft, non-tender, with normal bowel sounds. No distension or tympany. No guarding or rebound. No evidence of tenderness throughout. Skin: Warm, dry with normal turgor. Normal color with no rashes, no lesions, and no evidence of cellulitis. MS/ Extremity: Pulses equal, no cyanosis. Neurovascular intact. Full, normal range of motion. Cardiovascular: Rate: tachycardic, Rhythm: regular, Pulses: Pulses are 2+ in right radial artery and left radial artery. Heart sounds: normal, normal S1and S2, no S3 or S4, no murmur, no rub, no gallop, Edema: is not appreciated. ECG was reviewed by the Attending Physician. Neuro: Orientation: to person, Mentation: responsive to voice able to follow commands, Memory: impared, Cranial nerves: CN I not tested, CN II- XII are normal as tested, Motor: moves all fours, Sensation: no obvious gross deficits, seizure activity, is not displayed by the patient, Abnormal movements: there are no abnormal movements. Vital Signs: 09:56 Pulse 120; Resp 24; Pulse Ox 94% on R/A; hb 09:59 Pulse 114; Resp 22; Pulse Ox 100% on Non-rebreather mask; hb 10:01 Weight 108.86 kg; ss 10:03 Temp 98.7(TE); ss 10:15 BP 175 / 136; Pulse 108; Resp 21; Pulse Ox 100% on 15% Non-rebreather mask; sv 10:53 BP 200 / 109; Pulse 117; Resp 31; Pulse Ox 100% on 15% Non-rebreather mask; sv 11:15 BP 196 / 106; Pulse 114; Resp 26; Pulse Ox 100% on 15% Non-rebreather mask; sv 11:35 BP 166 / 89; Pulse 96; Resp 27; Pulse Ox 98% on 15% Non-rebreather mask; sv 11:45 BP 169 / 99; Pulse 92; Resp 28; Pulse Ox 100% on 15% Non-rebreather mask; sv 12:30 BP 141 / 94; Pulse 90; Resp 30; Pulse Ox 100% on 15% Non-rebreather mask; sv 13:00 BP 155 / 103; Pulse 93; Resp 26; Pulse Ox 99% on 15% Non-rebreather mask; sv 13:45 BP 161 / 90; Pulse 97; Resp 23; Pulse Ox 97% on 15% Non-rebreather mask; sv 14:30 BP 167 / 98; Pulse 99; Resp 25; Pulse Ox 100% on 15% Non-rebreather mask; sv 15:48 BP 182 / 102; Pulse 102; Resp 26; Pulse Ox 100% on 15% Non-rebreather mask; sv 16:53 BP 179 / 104; Pulse 102; Resp 21; Pulse Ox 100% on 15% Non-rebreather mask; sv 17:22 BP 160 / 104; Pulse 105; Resp 32; Pulse Ox 99% on 3 lpm NC; sv 18:00 BP 181 / 104; Pulse 109; Resp 28; Pulse Ox 98% on 3 lpm NC; sv 18:27 BP 192 / 94; Pulse 103; Resp 22; Pulse Ox 98% on 3 lpm NC; sv 23:05 BP 176 / 90; Pulse 85; Resp 20; Temp 98.7; Pulse Ox 95% ; ea 01/13 06:32 BP 155 / 87; Pulse 80; Resp 18; Temp 98; Pulse Ox 99% ; em 07:15 BP 158 / 76; Pulse 73; Resp 24; Pulse Ox 94% on R/A; Pain 0/10; ch5 MDM: 01/12 09:57 Patient medically screened. 01/13 00:25 Data reviewed: vital signs, nurses notes. Counseling: I had a detailed discussion with suhas the patient and/or guardian regarding: the historical points, exam findings, and any diagnostic results supporting the discharge/admit diagnosis, lab results, the need for outpatient follow up, to return to the emergency department if symptoms worsen or persist or if there are any questions or concerns that arise at home. ED course: Vital signs are much better now. I reevaluated the patient with a decreased EtOH of 89. Patient now states that he does not want to kill himself. We will contact the patient's for disposition.. 01/12 09:58 Order name: Acetaminophen; Complete Time: 11:40 01/12 09:58 Order name: Basic Metabolic Panel; Complete Time: 11:40 01/12 09:58 Order name: CBC with Diff; Complete Time: 10:55 01/12 09:58 Order name: ETOH Level; Complete Time: 10:55 [facility] 01/12 09:58 Order name: Hepatic Function; Complete Time: 11:40 [facility] 01/12 09:58 Order name: PT-INR; Complete Time: 10:55 [facility] 01/12 09:58 Order name: Ptt, Activated; Complete Time: 10:55 [facility] 01/12 09:58 Order name: Salicylate; Complete Time: 11:28 [facility] 01/12 09:58 Order name: Urine Drug Screen; Complete Time: 10:55 [facility] 01/12 10:03 Order name: COVID-19 : Document "Date of Symptom Onset" if Symptomatic. 01/12 10:06 Order name: Urine Dipstick-Ancillary; Complete Time: 10:12 [facility] 01/12 11:34 Order name: SARS-COV-2 RT PCR; Complete Time: 11:40 [facility] 01/12 20:27 Order name: ETOH Level; Complete Time: 22:21 [facility] 01/12 09:58 Order name: EKG; Complete Time: 09:58 [facility] 01/12 09:58 Order name: EKG - Nurse/Tech; Complete Time: 10:56 [facility] 01/12 20:48 Order name: ABG; Complete Time: 22:21 [facility] 01/12 22:55 Order name: Glucose, Ancillary Testing; Complete Time: 23:03 [facility] 01/13 07:28 Order name: Diet [place] 2000 [place]; Complete Time: 07:29 [facility] 01/12 09:58 Order name: IV Saline Lock; Complete Time: 10:02 [facility] 01/12 09:58 Order name: Labs collected and sent; Complete Time: 10:02 [facility] 01/12 09:58 Order name: Suicide Precautions; Complete Time: 10:02 [facility] 01/12 09:58 Order name: Urine Dipstick-Ancillary (obtain specimen); Complete Time: 10:05 [facility] 01/12 09:59 Order name: Oxygen; Complete Time: 09:59 [facility] EC/27 12:44 Rate is 120 beats/min. Rhythm is regular, Sinus tachycardia. QRS [place] is Normal. [place] jr8 interval is normal at 142 msec. QRS interval is normal at 82 msec. QT interval is normal at 314 msec. No Q waves. T waves are Normal. No ST changes noted. Clinical impression: Sinus tachycardia. Administered Medications: 09:55 Drug: Ketamine 4 mg/kg {Note: 300 mg administered as ordered by PA. Alexx} Route: IM; ss Site: left vastus lateralis; 10:14 Follow up: Response: No adverse reaction sv 10:52 Drug: Ringers - Lactated Ringers Solution 1000 ml Route: IV; Rate: bolus; Site: right sv antecubital; 16:00 Follow up: Response: No adverse reaction; IV Status: Completed infusion; IV Intake: sv 1000ml 10:52 Drug: Banana Bag - (NS 0.9% 1000 ml, foLIC Acid 1 mg, Thiamine 100 mg, Multivitamin 1 sv amp) Route: IV; Rate: 500 ml/hr; Site: right antecubital; 16:00 Follow up: IV Status: Completed infusion; IV Intake: 1000ml sv 11:30 Drug: Labetalol 10 mg Route: IVP; Site: right antecubital; sv 11:42 Follow up: Response: No adverse reaction sv 11:45 Drug: Benadryl (diphenhydrAMINE) 50 mg Route: IVP; Site: right antecubital; sv 12:00 Follow up: Response: No adverse reaction sv 11:47 Drug: HALdol (haloperidol) 5 mg Route: IVP; Site: right antecubital; sv 12:00 Follow up: Response: No adverse reaction sv 13:49 Drug: Ativan (LORazepam) 2 mg Route: IVP; Site: right antecubital; sv 14:00 Follow up: Response: No adverse reaction sv 17:22 Drug: NS 0.9% 1000 ml Route: IV; Rate: 250 ml/hr; Site: right antecubital; sv 22:46 CANCELLED (Inappropriate at this time): Insulin Regular Human 10 units IVP once ea 22:52 CANCELLED (Other Intervention Used): NS 0.9% 1000 ml IV at 1 bolus Per protocol; 1000 ea mL bolus Disposition Summary: 01/13/21 01:19 Discharge Ordered Location: Home jm Condition: Stable jmm Diagnosis - Alcohol abuse with intoxication jmm - Coronavirus infection, unspecified jmm Followup: jmm - With: Private Physician - When: 2 - 3 days - Reason: Recheck today's complaints, Continuance of care, Re-evaluation by your physician Discharge Instructions: - Discharge Summary Sheet jmm - Alcohol Intoxication jm - Form - Return To Work 5 Forms: - Medication Reconciliation Form [facility] - Thank You Letter suhas - Antibiotic Education [facility] - Prescription Opioid Use [facility] - Work release form Addendum: 01/15/2021 20:33 Co-signature as Attending Physician, Blanca Hayden MD Attestation: The patient's m a2 history, exam findings, diagnostics, and a summary of any interventions or procedures was reviewed in detail with Blanca Hayden MD. Signatures: Dispatcher [employer] EDMS Edith Valle RN RN Steven Marie PA PA jmm Smirch, Shelby, RN RN Alexx Maynard PA PA jr8 Baxter, Heather, RN RN Blanca Hayden MD MD ma Nelda Ngo RN, ea Corrections: (The following items were deleted from the chart) 01/12 10:30 10:12 CORONAVIRUS+MR.LAB.BRZ ordered. EDSD EDMS 10:56 09:58 Suicide Screening ([place]) ordered. Ignacio 22:46 22:34 Insulin Regular Human 10 units IVP once ordered. gloria pipo 22:52 22:35 NS 0.9% 1000 ml IV at 1 bolus Per protocol; 1000 mL bolus ordered. suhas foss 01/13 00:45 00:31 HEPATIC FUNCTION+C.LAB.BRZ ordered. EDSD EDMS
--- NOTE | 2021-01-13 01:20 | ER ---
Nurse's Notes [facility] Name: Seth Milligan Age: 45 yrs Sex: Male : 1975 Arrival Date: 01/12/2021 Time: 09:55 Bed 30 Private MD: Diagnosis: Alcohol abuse with intoxication;Coronavirus infection, unspecified Presentation: 01/12 09:56 Chief complaint: EMS states: Multiple calls to 911 for Suicidal ideation and ETOH hb intoxication. Pt told dispatch that he lost his job and did not want to live. EMS and [employer] with patient upon arrival. After administering 8 mg Ativan IM en route to ED, patient was still uncooperative and combative. 300 mg Ketamine IM administered. Coronavirus screen: Client denies travel out of the [place] in the last 14 days. Ebola Screen: Patient denies exposure to infectious person. Patient denies travel to an Ebola-affected area in the 21 days before illness onset. Initial Sepsis Screen: Does the patient meet any 2 criteria? RR > 20 per min. HR > 90 bpm. Does the patient have a suspected source of infection? No. Patient's initial sepsis screen is negative. Risk Assessment: Do you want to hurt yourself or someone else? Patient reports desire/thoughts of hurting themselves or someone else. Provider notified. Onset of symptoms is unknown. Transition of care: patient was not received from another setting of care. 09:56 Acuity: FRANK 2 hb 09:56 Method Of Arrival: EMS: [facility] Emergency Triage Assessment: 09:56 General: Appears in no apparent distress. well developed, Behavior is restless, sv uncooperative, Smells of alcohol. Pain: Unable to use pain scale. FLACC scale score is 0 out of 10. Neuro: Level of Consciousness is confused, lethargic. Cardiovascular: Rhythm is sinus tachycardia. Respiratory: Respiratory effort is even, unlabored, Respiratory pattern is regular, symmetrical. Derm: Skin is pink, warm \\T\\ dry. Historical: - Allergies: 09:59 No Known Allergies; hb - PMHx: :59 Hypertension; hb - Immunization history:: Adult Immunizations unknown. - Social history:: Smoking status: unknown. Screenin:00 Nutritional screening: No deficits noted. hb 11:35 Abuse screen: unable to assess. Tuberculosis screening: unable to assess . Fall Risk No sv fall in past 12 months (0 pts). Secondary diagnosis (15 points) impaired mobility, IV access (20 points). Ambulatory Aid- None/Bed Rest/Nurse Assist (0 pts). Gait- Normal/Bed Rest/Wheelchair (0 pts) Mental Status- Overestimates/Forgets Limitations (15 pts.). Total Mariscal Fall Scale indicates High Risk Score (45 or more points). Fall prevention measures have been instituted. Placed Close to Nursing Station Frequent Obs/Assessments Occuring. Assessment: 10:02 Reassessment: Pt snoring. NPA inserted to L nare. ss 10:56 Reassessment: Patient appears in no apparent distress at this time. No changes from sv previously documented assessment. Pain: Unable to use pain scale. FLACC scale score is 0 out of 10. Neuro: Level of Consciousness is lethargic, Oriented to none. Cardiovascular: Rhythm is sinus tachycardia. Respiratory: Respiratory effort is even, unlabored, Respiratory pattern is regular, symmetrical. Derm: Skin is pink, warm \\T\\ dry. 11:31 Reassessment: Patient appears in no apparent distress at this time. No changes from sv previously documented assessment. 13:45 Reassessment: Patient appears in no apparent distress at this time. Pt starting to move sv around and yell. Medication order received from Alexx MAHONEY. See MAR. 14:43 Reassessment: Patient appears in no apparent distress at this time. No changes from sv previously documented assessment. 15:30 Reassessment: Patient appears in no apparent distress at this time. No changes from sv previously documented assessment. 16:53 Reassessment: Patient appears in no apparent distress at this time. No changes from sv previously documented assessment. Pt moving around in the bed more so and making yelling noises. 17:22 Reassessment: Patient appears in no apparent distress at this time. No changes from sv previously documented assessment. Pt cleaned on urinary incontinence. Linen changed. 18:07 Reassessment: Patient appears in no apparent distress at this time. No changes from sv previously documented assessment. Pt asleep at this time. 19:55 General: Appears in no apparent distress. Behavior is cooperative. Neuro: Level of ea Consciousness is awake, alert, obeys commands, Oriented to person, place, time. Derm: Skin is pink, warm \\T\\ dry. 22:17 Reassessment: Patient and/or family updated on plan of care and expected duration. Pain ea level reassessed. Patient is alert, oriented x 3, equal unlabored respirations, skin warm/dry/pink. Pt ambulated to restroom with assist pt tolerated well. 01/13 02:14 Reassessment: Patient and/or family updated on plan of care and expected duration. Pain ea level reassessed. Patient is alert, oriented x 3, equal unlabored respirations, skin warm/dry/pink. Pt unable to recall family friend number for ride home. 03:42 Reassessment: Patient and/or family updated on plan of care and expected duration. Pain ea level reassessed. Pt resting with eyes closed, respirations even and unlabored, chest expansions even and symmetrical.. No s/s of pain or discomfort noted at this time. 06:32 Reassessment: Patient and/or family updated on plan of care and expected duration. Pain em level reassessed. Patient is alert, oriented x 3, equal unlabored respirations, skin warm/dry/pink. Pt awaiting on ride home. 07:15 Reassessment: Report received From Night RN. Pt resting with eyes closed equal rise and ch5 fall of chest. Pending Discharge, pt has no ride. No IV at this time. 08:51 Reassessment: Pt able to call ride. DC paper given to Pt with work note. Verbalized ch5 understanding. Psych: 01/12 10:00 [place] Suicide Severity Screening: In the past month, have you wished you were sv or wished you could go to sleep and not wake up? unable to complete at this time, pt has been medicated. "In the past month, have you actually had any thoughts of killing yourself?" unable to complete at this time, pt has been medicated. "In your lifetime, have you ever done anything, started to do anything, or prepared to do anything to end your life?" unable to complete at this time, pt has been medicated. Subjective: Patient's mood is unable to complete at this time, pt has been medicated. Objective: Patient is unable to complete at this time, pt has been medicated. Interventions: Removed personal items and placed in bag. Patient placed in hospital gown. Searched person for dangerous items. Urine collected and sent for urine drug test. Safety Checks: Personal items have been removed. Pt has been placed in a hallway bed/chair. No visitors are present at this time. unable to complete at this time, pt has been medicated. Commitment: Patient will be an involuntary commitment. Vital Signs: 09:56 Pulse 120; Resp 24; Pulse Ox 94% on R/A; hb 09:59 Pulse 114; Resp 22; Pulse Ox 100% on Non-rebreather mask; hb 10:01 Weight 108.86 kg; ss 10:03 Temp 98.7(TE); ss 10:15 BP 175 / 136; Pulse 108; Resp 21; Pulse Ox 100% on 15% Non-rebreather mask; sv 10:53 BP 200 / 109; Pulse 117; Resp 31; Pulse Ox 100% on 15% Non-rebreather mask; sv 11:15 BP 196 / 106; Pulse 114; Resp 26; Pulse Ox 100% on 15% Non-rebreather mask; sv 11:35 BP 166 / 89; Pulse 96; Resp 27; Pulse Ox 98% on 15% Non-rebreather mask; sv 11:45 BP 169 / 99; Pulse 92; Resp 28; Pulse Ox 100% on 15% Non-rebreather mask; sv 12:30 BP 141 / 94; Pulse 90; Resp 30; Pulse Ox 100% on 15% Non-rebreather mask; sv 13:00 BP 155 / 103; Pulse 93; Resp 26; Pulse Ox 99% on 15% Non-rebreather mask; sv 13:45 BP 161 / 90; Pulse 97; Resp 23; Pulse Ox 97% on 15% Non-rebreather mask; sv 14:30 BP 167 / 98; Pulse 99; Resp 25; Pulse Ox 100% on 15% Non-rebreather mask; sv 15:48 BP 182 / 102; Pulse 102; Resp 26; Pulse Ox 100% on 15% Non-rebreather mask; sv 16:53 BP 179 / 104; Pulse 102; Resp 21; Pulse Ox 100% on 15% Non-rebreather mask; sv 17:22 BP 160 / 104; Pulse 105; Resp 32; Pulse Ox 99% on 3 lpm NC; sv 18:00 BP 181 / 104; Pulse 109; Resp 28; Pulse Ox 98% on 3 lpm NC; sv 18:27 BP 192 / 94; Pulse 103; Resp 22; Pulse Ox 98% on 3 lpm NC; sv 23:05 BP 176 / 90; Pulse 85; Resp 20; Temp 98.7; Pulse Ox 95% ; ea 01/13 06:32 BP 155 / 87; Pulse 80; Resp 18; Temp 98; Pulse Ox 99% ; em 07:15 BP 158 / 76; Pulse 73; Resp 24; Pulse Ox 94% on R/A; Pain 0/10; ch5 ED Course: 01/12 09:55 Patient arrived in ED. hb 09:57 Alexx Maynard PA is PHCP. jr8 09:57 Blanca Hayden MD is Attending Physician. jr8 09:59 Triage completed. hb 09:59 Arm band placed on right wrist. hb 10:00 youth nutritional monitor on. Pulse ox on. NIBP on. hb 10:00 Inserted saline lock: 20 gauge in right antecubital area, using aseptic technique. ss Blood collected. 10:02 Oxygen administration via non-rebreather mask Response to oxygen therapy: symptoms ss improved. 10:04 Edith Valle RN is Primary Nurse. sv 10:04 Placed nasal trumpet 32 Fr via left nare. ss 10:05 Patient has correct armband on for positive identification. Placed in gown. Bed in low sv position. Call light in reach. Side rails up X2. Seizure precautions initiated. 10:05 COVID swab sent to lab. sv 10:23 Straight cath inserted, using sterile technique, 16 Fr. Specimen obtained. Returned mt janet urine. Patient tolerated well. 14:52 Lidya Muniz called to leave her phone number if anyone can call and update her eb with patient disposition information at [phone]. 18:03 PHCP role handed off by Alexx Maynard PA [facility] 18:03 Steven Marie PA is PHCP. jm 19:06 Primary Nurse role handed off by Edith Valle RN sv 19:06 Report given to Manjeet RAINEY. sv 20:58 Nelda Ngo RN is Primary Nurse. ea 21:01 Attending Physician role handed off by Blanca Hayden MD rn 21:01 Richard Mesa MD is Attending Physician. rn 22:53 IV discontinued, intact, bleeding controlled, No redness/swelling at site. Pressure ea dressing applied, Pt DC'd IV. 01/13 06:32 No provider procedures requiring assistance completed. em 07:46 Primary Nurse role handed off by Nelda Ngo, BRIGID 5 07:46 Damion Rajput, RN is Primary Nurse. 5 08:51 Pt requested to wait in waiting room for ride, "he is on his way". Ambulated OTD. ch5 09:00 Accessed Patient did not have IV access during this emergency room visit. No IV access 5 at time of Discharge. Restraints: 01/12 10:00 Non-Violent Restraint: Order obtained. Initiated on January 12, 2021 at 10:00 Unable to sv provide Restraint education. pt unable to follow direction. Actions/Behavior observed: Confused/disoriented, has difficulty remembering/follow instructions, has impaired decision making, has decreased level of consciousness, unable to follow instructions, Less restrictive alternatives attempted: decrease environmental stimuli, 1:1 patient care, placed near Nurse station, medications evaluated, lines/tubes covered, eliminated unnecessary lines/tubes, Alternative interventions: Ineffective. Clinical justification for use: line protection, patient safety, Restraint status: Side rails up x 4 Started. Soft wrist restraint (Right) Started. Soft wrist restraint (Left) Started. 12:00 Non-Violent Restraint: Unable to provide Restraint education. pt sedated. sv Actions/Behavior observed: Confused/disoriented, has difficulty remembering/follow instructions, has impaired decision making, has decreased level of consciousness, unable to follow instructions, Less restrictive alternatives attempted: decrease environmental stimuli, 1:1 patient care, placed near Nurse station, medications evaluated, lines/tubes covered, eliminated unnecessary lines/tubes, Alternative interventions: Ineffective. Clinical justification for use: line protection, patient safety, Mental status: patient asleep, Cognition: Unable to assess. Circulation: Within defined parameters (based on Cardiovascular assessment) Skin integrity: Within defined parameters (based on Integumentary assessment) Signs of injury related to restraint: No injuries noted. Range of Motion (ROM): patient asleep. Hydration/Food: patient asleep. Elimination/Hygiene: Patient asleep. Restraint status: Side rails up x 4 Continued. Soft wrist restraint (Right) Continued. Soft wrist restraint (Left) Continued. Criteria to discontinue Restraint not met. Restraint continued. 14:00 Non-Violent Restraint: Unable to provide Restraint education. pt sedated. sv Actions/Behavior observed: Confused/disoriented, has difficulty remembering/follow instructions, has impaired decision making, has decreased level of consciousness, unable to follow instructions, Less restrictive alternatives attempted: decrease environmental stimuli, 1:1 patient care, placed near Nurse station, medications evaluated, lines/tubes covered, eliminated unnecessary lines/tubes, Alternative interventions: Ineffective. Clinical justification for use: line protection, patient safety, Mental status: patient asleep, Cognition: Unable to assess. Circulation: Within defined parameters (based on Cardiovascular assessment) Skin integrity: Within defined parameters (based on Integumentary assessment) Signs of injury related to restraint: No injuries noted. Range of Motion (ROM): patient asleep. Hydration/Food: patient asleep. Elimination/Hygiene: Patient asleep. Restraint status: Side rails up x 4 Continued. Soft wrist restraint (Right) Continued. Soft wrist restraint (Left) Continued. Criteria to discontinue Restraint not met. Restraint continued. 16:00 Non-Violent Restraint: Actions/Behavior observed: Confused/disoriented, has difficulty sv remembering/follow instructions, has impaired decision making, has decreased level of consciousness, unable to follow instructions, Less restrictive alternatives attempted: decrease environmental stimuli, 1:1 patient care, placed near Nurse station, medications evaluated, lines/tubes covered, eliminated unnecessary lines/tubes, Alternative interventions: Ineffective. Clinical justification for use: line protection, patient safety, Mental status: patient asleep, Cognition: Unable to assess. Circulation: Within defined parameters (based on Cardiovascular assessment) Skin integrity: Within defined parameters (based on Integumentary assessment) Signs of injury related to restraint: No injuries noted. Range of Motion (ROM): patient asleep. Hydration/Food: patient asleep. Elimination/Hygiene: Patient asleep. Restraint status: Side rails up x 4 Continued. Soft wrist restraint (Right) Continued. Soft wrist restraint (Left) Continued. Criteria to discontinue Restraint not met. Restraint continued. 18:00 Non-Violent Restraint: Unable to provide Restraint education. pt asleep. sv Actions/Behavior observed: Confused/disoriented, has difficulty remembering/follow instructions, has impaired decision making, has decreased level of consciousness, unable to follow instructions, Less restrictive alternatives attempted: decrease environmental stimuli, 1:1 patient care, placed near Nurse station, medications evaluated, lines/tubes covered, eliminated unnecessary lines/tubes, Alternative interventions: Ineffective. Clinical justification for use: line protection, patient safety, Mental status: patient asleep, Cognition: Unable to assess. Circulation: Within defined parameters (based on Cardiovascular assessment) Skin integrity: Within defined parameters (based on Integumentary assessment) Signs of injury related to restraint: No injuries noted. Range of Motion (ROM): patient asleep. Hydration/Food: patient asleep. Elimination/Hygiene: Patient asleep. Restraint status: Side rails up x 4 Continued. Soft wrist restraint (Right) Continued. Soft wrist restraint (Left) Continued. Criteria to discontinue Restraint not met. Restraint continued. Administered Medications: 09:55 Drug: Ketamine 4 mg/kg {Note: 300 mg administered as ordered by PA. Alexx} Route: IM; ss Site: left vastus lateralis; 10:14 Follow up: Response: No adverse reaction sv 10:52 Drug: Ringers - Lactated Ringers Solution 1000 ml Route: IV; Rate: bolus; Site: right sv antecubital; 16:00 Follow up: Response: No adverse reaction; IV Status: Completed infusion; IV Intake: sv 1000ml 10:52 Drug: Banana Bag - (NS 0.9% 1000 ml, foLIC Acid 1 mg, Thiamine 100 mg, Multivitamin 1 sv amp) Route: IV; Rate: 500 ml/hr; Site: right antecubital; 16:00 Follow up: IV Status: Completed infusion; IV Intake: 1000ml sv 11:30 Drug: Labetalol 10 mg Route: IVP; Site: right antecubital; sv 11:42 Follow up: Response: No adverse reaction sv 11:45 Drug: Benadryl (diphenhydrAMINE) 50 mg Route: IVP; Site: right antecubital; sv 12:00 Follow up: Response: No adverse reaction sv 11:47 Drug: HALdol (haloperidol) 5 mg Route: IVP; Site: right antecubital; sv 12:00 Follow up: Response: No adverse reaction sv 13:49 Drug: Ativan (LORazepam) 2 mg Route: IVP; Site: right antecubital; sv 14:00 Follow up: Response: No adverse reaction sv 17:22 Drug: NS 0.9% 1000 ml Route: IV; Rate: 250 ml/hr; Site: right antecubital; sv 22:46 CANCELLED (Inappropriate at this time): Insulin Regular Human 10 units IVP once ea 22:52 CANCELLED (Other Intervention Used): NS 0.9% 1000 ml IV at 1 bolus Per protocol; 1000 ea mL bolus Intake: 16:00 IV: 1000ml; Total: 1000ml. sv 16:00 IV: 1000ml; Total: 2000ml. sv 22:53 PO: 500ml (Water); Total: 2500ml. ea Output: 10:20 Urine: 1000ml (Straight Cath); Total: 1000ml. sv 17:22 Other: 1 (Diapers) ; Total: 1000ml. sv 18:19 Urine: 400ml (Voided); Total: 1400ml. sv 22:53 Urine: 300ml (Voided); Total: 1700ml. ea Outcome: 01/13 01:19 Discharge ordered by . [facility] 08:57 Discharged to home ambulatory. 5 08:57 Discharged to home ambulatory. 08:57 Condition: stable 08:57 Discharge instructions given to patient. 09:01 Patient left the ED. 5 Signatures: Edith Valle RN RN Steven Marie PA PA jmm Munoz, Edgar RN Richard Mckeon MD MD rn Smirch, Shelby, RN RN Alexx Maynard PA PA jr Rosy Herrera, Aliza Cota RN, mt, Elena, RN RN ea Botello, Elizabeth eb Heath, Christopher RN RN 5 Corrections: (The following items were deleted from the chart) 01/12 10:02 09:55 Ketamine 4 mg/kg IM in left vastus lateralis [facility] 16:53 16:53 Reassessment: Patient appears in no apparent distress at this time. No changes sv from previously documented assessment. sv 19:05 10:00 Non-Violent Restraint: Order obtained. Initiated on January 12, 2021 at 10:00 sv Unable to provide Restraint education. pt unable to follow direction. Actions/Behavior observed: Confused/disoriented, has difficulty remembering/follow instructions, has impaired decision making, has decreased level of consciousness, unable to follow instructions, Less restrictive alternatives attempted: decrease environmental stimuli, 1:1 patient care, placed near Nurse station, medications evaluated, lines/tubes covered, eliminated unnecessary lines/tubes, Alternative interventions: Ineffective. Clinical justification for use: line protection, patient safety, sv
[2021-01-13 09:31] VITALS: TEMP 98
[2021-01-13 09:32] VITALS: BP 158/76; O2SAT 94
== END 2021-01-13 09:01 | disposition home or self-care (01) ==
LOC: ER 09:50
DX: U07.1 COVID-19 (principal); I10 Essential (primary) hypertension
CPT/HCPCS: 96365; 96368; 93005; 85025; 80048; 36415; 80320 ×2; 80329 ×2; 85610; 82947; 80076; 85730; 81003; 80307; 82805; 51702; 96375; 96372; 99285; 96366; U0003; J1630; J3411; J1200; J7120; J7030 ×2

== ENCOUNTER 2021-01-15 06:27 | Emergency (ER) | payer BC ==
--- OUTSIDE RECORDS SUMMARY | 2021-01-15 06:29 | XMS REPORT | Continuity of Care Document ---
:1975 Author Organization [facility] t Address [address] [place] [address] Care Team Providers Name Role Phone Ghislaine [...] Date Clinician No Known DA Active U [facility] Allergie 12-15 [facility] 00:00: [facility] 00 are [place] Medications This patient has no known medications. Procedures This patient has no known procedures. Encounters Start End Encounter Admission Attending Care Care Encounter Source Date/Time Date/Time Type Type Clinicians Facility Department ID 2020-12-15 2020-12-15 Emergency EM GUNNAR Layne EO3 [id number] [facility] 16:35:00 18:47:00 Ghislaine [id number] [facility] on [facility] are [place] Results Test Description Test Time Test Comments Results Result [facility] e Comments - XR SHOULDER 2 + 2020-12-15 V RT 18:09:00 [facility] : 1975 Sex: M Moise staciehayley Name: ERMIAS GONZALEZ Unit No: [id number] EXAMS: CPT: [id number] XR SHOULDER 2 + [place] RT [id number] RADIOGRAPH: Right shoulder 3 views COMPARISON: None [...] (1811) BATCH NO: N/A Name: ERMIAS GONZALEZ [facility] Emergency Dept Phys: [facility].21 - Ghislaine Layne [address] [facility] : 1975 Age: 45 Sex: [place] [id number] Loc: [facility] Exam Date: 12/15/2020 Status: REG ER PH: [phone] FAX: PAGE 1 Signed Report - XR L-SPINE 06/212020-12-15 VIEWS 18:07:00 [facility] : 1975 Sex: M Moise shaw Name: ERMIAS GONZALEZ Unit No: [id number] EXAMS: CPT: [id number] XR L-SPINE 2/3 VIEWS [id number] LUMBAR SPINE 3 VIEWS: COMPARISON: None CLINICAL [...] CC: Ghislaine Layne MD Technologist: SARWAT SHELTON [facility] Dt/Tm: 12/15/2020 (1806) by:HongHNN Orig Print D/T: S: 12/15/2020 (1809) BATCH NO: N/A Name: ERMIAS GONZALEZ [facility] Emergency Dept Phys: [email or web address] - Ghislaine Layne [address] [facility] : 1975 Age: 45 Sex: [place] [id number] Loc: CHYNA Exam Date: 12/15/2020 Status: REG ER PH: [phone] FAX: PAGE 1 Signed Report
--- NOTE | 2021-01-15 09:17 | RAD REPORT ---
EXAM DESCRIPTION: RAD - Chest Single View - 01/15/2021 8:27 am CLINICAL HISTORY: COUGH COMPARISON: September 2010 portable TECHNIQUE: AP portable chest image was obtained 01/15/2021 8:27 am . FINDINGS: Lungs are clear. Heart and vasculature are normal. No measurable pleural effusion and no p neumothorax. No acute bony abnormality seen. No acute aortic findings suspected. IMPRESSION: No acute cardiopulmonary process. No significant change from comparison study.
--- NOTE | 2021-01-15 09:48 | EDPHYS ---
Physician Documentation [facility] Name: Seth Milligan Age: 45 yrs Sex: Male : 1975 Arrival Date: 01/15/2021 Time: 06:31 Bed 28 Private MD: ED Physician Ashutosh Vaughan HPI: 01/15 10:05 This 45 yrs old Male presents to ER via Ambulatory with complaints of Fever, jr8 Cough. 10:05 Onset: The symptoms/episode began/occurred gradually. Modifying factors: there are no jr8 obvious modifying factors. Associated signs and symptoms: Pertinent positives: chills, nausea, vomiting. Severity of symptoms: At their worst the symptoms were moderate in the emergency department the symptoms are unchanged. The patient has not experienced similar symptoms in the past. The patient has been recently seen by a physician:. Patient was recently seen in ED for other signs and symptoms but had tested positive for Covid. Came in today for fever, cough, chills, nausea, vomiting, diarrhea. Historical: - Allergies: 07:13 No Known Allergies; hb - PMHx: 07:13 Hypertension; hb - Immunization history:: Adult Immunizations up to date, Client reports having NOT received the Covid vaccine. Last tetanus immunization: up to date. - Social history:: Smoking status: Patient denies any tobacco usage or history of. Patient uses. ROS: 10:05 Eyes: Negative for injury, pain, redness, and discharge, Neck: Negative for injury, jr8 pain, and swelling, Cardiovascular: Negative for chest pain, palpitations, and edema, Back: Negative for injury and pain, MS/Extremity: Negative for injury and deformity, Skin: Negative for injury, rash, and discoloration, Neuro: Negative for headache, weakness, numbness, tingling, and seizure. 10:05 Constitutional: Positive for body aches, chills, fever. 10:05 ENT: Positive for rhinorrhea, sinus congestion. 10:05 Respiratory: Positive for cough, Negative for dyspnea on exertion, shortness of breath, sputum production, wheezing. Exam: 10:05 Constitutional: This is a well developed, well nourished patient who is awake, alert, jr8 and in no acute distress. ENT: Nares patent. No nasal discharge, no septal abnormalities noted. Tympanic membranes are normal and external auditory canals are clear. Oropharynx with no redness, swelling, or masses, exudates, or evidence of obstruction, uvula midline. Mucous membranes moist. Neck: Trachea midline, no thyromegaly or masses palpated, and no cervical lymphadenopathy. Supple, full range of motion without nuchal rigidity, or vertebral point tenderness. No Meningismus. Cardiovascular: Regular rate and rhythm with a normal S1 and S2. No gallops, murmurs, or rubs. Normal PMI, no JVD. No pulse deficits. Respiratory: Lungs have equal breath sounds bilaterally, clear to auscultation and percussion. No rales, rhonchi or wheezes noted. No increased work of breathing, no retractions or nasal flaring. Abdomen/GI: Soft, non-tender, with normal bowel sounds. No distension or tympany. No guarding or rebound. No evidence of tenderness throughout. Back: No spinal tenderness. No costovertebral tenderness. Full range of motion. Skin: Warm, dry with normal turgor. Normal color with no rashes, no lesions, and no evidence of cellulitis. MS/ Extremity: Pulses equal, no cyanosis. Neurovascular intact. Full, normal range of motion. Neuro: Awake and alert, GCS 15, oriented to person, place, time, and situation. Cranial nerves II-XII grossly intact. Motor strength 5/5 in all extremities. Sensory grossly intact. Vital Signs: 07:11 BP 146 / 86; Pulse 92; Resp 20; Temp 98.8(O); Pulse Ox 95% on R/A; Weight 93.89 kg; hb Height 5 ft. 4 in. (162.56 cm); Pain 10/10; 07:24 BP 142 / 86; Pulse 90; Resp 20; Temp 98.8; Pulse Ox 95% ; Pain 10/10; ch5 10:05 BP 138 / 65; Pulse 95; Resp 20; Pulse Ox 95% ; Pain 10/10; ch5 07:11 Body Mass Index 35.53 (93.89 kg, 162.56 cm) hb MDM: 07:17 Patient medically screened. jr8 09:47 Data reviewed: vital signs, nurses notes, lab test result(s), radiologic studies, plain jr8 films. Data interpreted: Pulse oximetry: on room air is 95 %. Interpretation: normal. Counseling: I had a detailed discussion with the patient and/or guardian regarding: the historical points, exam findings, and any diagnostic results supporting the discharge/admit diagnosis, lab results, radiology results, the need for outpatient follow up, a family practitioner, to return to the emergency department if symptoms worsen or persist or if there are any questions or concerns that arise at home. 10:07 ED course: Patient hemodynamically stable. No increased work of breathing. Oxygen jr8 saturation well-maintained. No signs of Covid pneumonia on chest x-ray. Will send home with symptomatic care for now along with nausea medicine and something for his cough and sore throat. Signs and symptoms given to patient that would note need for return for further evaluation. Patient good plan at this time and has been discharged.. 01/15 07:49 Order name: COVID-19 : Document "Date of Symptom Onset" if Symptomatic. 8 01/15 07:49 Order name: XRAY Chest (1 view); Complete Time: 09:20 8 01/15 09:36 Order name: SARS-COV-2 RT PCR; Complete Time: 09:37 EDMS Administered Medications: No medications were administered Disposition: 12:09 Co-signature as Attending Physician, Ashutosh Vaughan MD I agree with the assessment and jeanine plan of care. Disposition Summary: 01/15/21 09:47 Discharge [facility]dered [facility] Problem: new jr8 Symptoms: have improved jr8 Condition: Stable jr8 Diagnosis - SARS-associated coronavirus as the cause of diseases classified elsewhere jr8 Followup: jr8 - With: Private Physician - When: 2 - 3 days - Reason: Recheck today's complaints, Continuance of care, Re-evaluation by your physician Discharge Instructions: - Discharge Summary Sheet jr8 - COVID-19 jr8 Forms: - Medication Reconciliation Form jr8 - Thank You Letter jr8 - Antibiotic Education jr8 - Prescription Opioid Use jr8 Prescriptions: - Tessalon Perles 100 mg Oral Capsule - take 1 capsule by ORAL route every 8 hours As needed; 15 capsule; Refills: 0, jr8 Product Selection Permitted - promethazine 25 mg Oral Tablet - take 1 tablet by ORAL route every 6 hours As needed; 20 tablet; Refills: 0, jr8 Product Selection Permitted Signatures: Dispatcher [employer] Ashutosh Preston MD MD cha Roszak, Josh, PA PA jr8 Rosy Herrera, RN RN hb Damion Rajput RN RN ch5 Corrections: (The following items were deleted from the chart) 08:44 07:50 CORONAVIRUS ordered. EDMS EDMS
--- NOTE | 2021-01-15 09:48 | ER ---
[facility] Name: Seth Milligan Age: 45 yrs Sex: Male : 1975 Arrival Date: 01/15/2021 Time: 06:31 Bed 28 Private MD: Diagnosis: SARS-associated coronavirus as the cause of diseases classified elsewhere Presentation: 01/15 07:11 Chief complaint: Cough, congestion, body aches, sore throat, headache, and N/V/D x 3 hb days. TMAX 101. Coronavirus screen: Client presents with at least one sign or symptom that may indicate coronavirus-19. Standard/surgical mask placed on the client. Provider contacted for isolation considerations. Ebola Screen: No symptoms or risks identified at this time. Onset of symptoms was January 12, 2021. 07:11 Method Of Arrival: Ambulatory hb 07:11 Acuity: FRANK 3 hb Historical: - Allergies: 07:13 No Known Allergies; hb - PMHx: 07:13 Hypertension; hb - Immunization history:: Adult Immunizations up to date, Client reports having NOT received the Covid vaccine. Last tetanus immunization: up to date. - Social history:: Smoking status: Patient denies any tobacco usage or history of. Patient uses. Screenin:24 Abuse screen: Denies threats or abuse. Denies injuries from another. Nutritional ch5 screening: No deficits noted. Tuberculosis screening: No symptoms or risk factors identified. Fall Risk None identified. Assessment: 07:22 Reassessment: Patient appears in no apparent distress at this time. General: Reports 5 feeling ill for fatigue for 2-3 days. Pain: Pain at worst was 10 out of 10 on a pain scale. 08:29 GI: Reports nausea, vomiting. ch5 Vital Signs: 07:11 BP 146 / 86; Pulse 92; Resp 20; Temp 98.8(O); Pulse Ox 95% on R/A; Weight 93.89 kg; hb Height 5 ft. 4 in. (162.56 cm); Pain 10/10; 07:24 BP 142 / 86; Pulse 90; Resp 20; Temp 98.8; Pulse Ox 95% ; Pain 10/10; ch5 10:05 BP 138 / 65; Pulse 95; Resp 20; Pulse Ox 95% ; Pain 10/10; ch5 07:11 Body Mass Index 35.53 (93.89 kg, 162.56 cm) ED Course: 06:31 Patient arrived in ED. 07:13 Triage completed. 07:13 Arm band placed on. 07:17 Alexx Maynard PA is PHCP. jr8 07:17 Ashutosh Vaughan MD is Attending Physician. jr8 07:21 Damion Rajput, RN is Primary Nurse. ch5 07:24 Patient has correct armband on for positive identification. Bed in low position. Call ch5 light in reach. Side rails up X 1. 08:26 XRAY Chest (1 view) In Process Unspecified. EDMS 09:33 COVID-19 : Document "Date of Symptom Onset" if Symptomatic. Sent. 5 10:05 No provider procedures requiring assistance completed. Patient did not have IV access ch5 during this emergency room visit. Administered Medications: No medications were administered Outcome: 09:47 Discharge ordered by . jr 10:05 Discharged to home ambulatory. 5 10:05 Condition: stable 10:05 Discharge instructions given to patient, Instructed on Prescriptions given X 2. 10:07 Patient left the ED. 5 Signatures: Dispatcher [employer] EDMI Alexx Maynard PA PA jr8 Rosy Herrera, RN RN Keila Pink Damion Rajput, RN RN [facility]
[2021-01-15 10:13] VITALS: TEMP 98.8; O2SAT 95
[2021-01-15 10:16] VITALS: BP 138/65
== END 2021-01-15 10:07 | disposition home or self-care (01) ==
LOC: ER 06:27
DX: U07.1 COVID-19 (principal); I10 Essential (primary) hypertension
CPT/HCPCS: 71045; 99283; U0003

== ENCOUNTER 2021-02-02 22:31 | Inpatient (IN) | payer BC ==
[2021-02-02 22:49] LABS: Absolute Lymphocytes (CBC) 3.5 K/uL (0.7-4.9); Basophils % 0.7 % (0-1.3); Hematocrit 38.2 % (39.6-49.0); Lymphocytes % 18.8 % (15.3-44.8); MPV 8.1 fL (7.6-11.3); RBC Red Blood Cell Count 4.64 M/uL (4.33-5.43)
[2021-02-02 22:51] LABS: Protime INR 0.97
[2021-02-02 23:17] LABS: Albumin 3.3 g/dL (3.4-5.0); Bilirubin Direct 0.1 mg/dL (0-0.2); Bilirubin Total 0.3 mg/dL (0.2-1.0); Magnesium 1.9 mg/dL (1.8-2.4); Potassium 3.7 mmol/L (3.5-5.1); Protein, Total 7.6 g/dL (6.4-8.2); Troponin (Emerg Dept Use Only) 0.02 ng/mL (0.0-0.045)
[2021-02-03] MEDS ORDERED: NA CHLORIDE 0.9% 1,000 ML ONE (00:02)
[2021-02-03 00:28] LABS: Urine Blood 2+ (Negative); Urine Glucose Trace (Negative); Urine Protein 2+ (Negative); Urine Specific Gravity >=1.030 (1.005-1.030)
[2021-02-03] MEDS ORDERED: MORPHINE 2 MG/ML SYR ONE (01:00)
[2021-02-03] MEDS ORDERED: ONDANSETRON 4 MG/2 ML VIAL ONE (01:00)
[2021-02-03] MEDS ORDERED: MORPHINE 4 MG/ML SYR ONE ×2 (01:03→05:27)
[2021-02-03 01:20] LABS: Barbiturates NEGATIVE (NEGATIVE); Benzodiazepines NEGATIVE (NEGATIVE); Cocaine NEGATIVE (NEGATIVE); METHAMPHETAM POSITIVE (NEGATIVE); Methadone NEGATIVE (NEGATIVE); Opiates NEGATIVE (NEGATIVE); Phencyclidine NEGATIVE (NEGATIVE); THC Cannibis NEGATIVE (NEGATIVE)
--- NOTE | 2021-02-03 02:04 | P.HP ---
Certification for Inpatient Patient admitted to: Inpatient With expected LOS: >2 Midnights Patient will require the following post-hospital care: None Practitioner: I am a practitioner with admitting privileges, knowledge of patient current condition, hospital course, and medical plan of care. Services: Services provided to patient in accordance with Admission requirements found in Title 42 Section 412.3 of the Code of Federal Regulations Patient History Date of Service: 02/03/21 Reason for admission: Acute renal failure, chest pain, syncope History of Present Illness: 45-year-old male with history of hypertension, diabetes metas type II presents emergency department for syncope, chest pain. Patient reports that he was asleep in bed when he woke up with "heartburn symptoms" when he got up to take medicine he had a syncopal episode, lost consciousness and woke up on the floor. Patient reports he began having left-sided chest pain after the fall. Initially patient was hypotensive upon arrival to the emergency room with blood pressure 90/60. Patient's labs revealed white blood cell count 18.4 sodium 132 creatinine 3.3 glucose 241 BNP 538 and methamphetamine positive blood pressure improved with IV fluids currently 115/70, patient denies any known history of kidney disease, does report that he recently had Covid but has recovered. Patient's most creatinine was 1.39 on 01/12/2021. Labs from September 2020 creatinine 0.6. Will admit for acute renal failure, syncope, chest pain, methamphetamine abuse. Allergies No Known Allergies Allergy (Verified 10/11/20 18:34) Home Medications: Aspirin [Aspirin EC 81 MG] 81 mg PO DAILY #30 tablet. 10/14/20 Docosahexanoic AC/Epa [Fish Oil 1,000 MG CAP] 2 cap PO BID #120 cap 10/14/20 Folic Acid 1 mg PO DAILY #90 tablet 10/14/20 Melatonin 5 mg PO BEDTIME PRN PRN #30 tablet 10/14/20 Metformin HCl [Glucophage*] 500 mg PO BIDWM #60 tab 10/14/20 Metoprolol Tartrate [Lopressor*] 12.5 mg PO BID #60 tab 10/14/20 Thiamine HCl [Vitamin B-1*] 100 mg PO DAILY #90 tablet 10/14/20 gemfibroziL [Lopid*] 600 mg PO BID #60 tab 10/14/20 traMADol HCL [Ultram*] 50 mg PO TID PRN #10 tab 10/14/20 - Past Medical/Surgical History Diabetic: No -: Alcohol abuse. -: Drug use -: HTN -: Diabetes type 2 -: None Psychosocial/ Personal History: Works in construction - Family History Father -: Heart disease, Hypertension, Diabetes Mother -: Diabetes - Social History Smoking Status: Never smoker Alcohol use: Yes CD- Drugs: Yes Caffeine use: Yes Place of Residence: Home Review of Systems 10-point ROS is otherwise unremarkable General: Weakness, Malaise Cardiovascular: Chest Pain, As per HPI Physical Examination - Physical Exam General: Alert, In no apparent distress, Oriented x3 HEENT: Atraumatic, PERRLA, EOMI Neck: Supple, 2+ carotid pulse no bruit, No LAD Respiratory: Clear to auscultation bilaterally, Normal air movement Cardiovascular: Regular rate/rhythm, Normal S1 S2 Gastrointestinal: Normal bowel sounds, No tenderness Musculoskeletal: No tenderness Integumentary: No rashes Neurological: Normal speech, Normal strength at 5/5 x4 extr, Normal tone, Normal affect Lymphatics: No axilla or inguinal lymphadenopathy - Studies Laboratory Data (last 24 hrs) 02/02/21 23:05: Lipase 250 02/02/21 22:37: PT 11.2, INR 0.97 02/02/21 22:37: WBC 18.40 H, Hgb 12.9 L, Hct 38.2 L, Plt Count 323 02/02/21 22:37: Sodium 132 L, Potassium 3.7, BUN 31 H, Creatinine 3.30 H, Glucose 241 H, Magnesium 1.9, Total Bilirubin 0.3, AST 38 H, ALT 56, Alkaline Phosphatase 91 Assessment and Plan - Plan Assessment: Acute renal failure Syncope, chest pain Diabetes type 2 with hyperglycemia Hypertension Plan: Acute renal failure: Likely multifactorial, patient recently with Covid infection and has recovered, patient appears dry/possibly dehydrated also admits to methamphetamine use. Will obtain renal ultrasound, CPK, uric acid levels received 2 L normal saline bolus in the emergency department continue with NS at 125. Nephrology consulted. We will hold patient's Metformin/lisinopril and NSAIDs. Avoid contrast. Syncope, chest pain: Likely related to methamphetamine use, will monitor on telemetry, trend troponins, obtain echocardiogram, cardiology consulted. Aspirin, statin, beta-carie. Diabetes type 2 with hyperglycemia: ACH is Accu-Chek, sliding scale insulin therapy. A1c with morning labs. Hypertension: We will need to adjust patient's medications as he takes lisinopril. Pressure normal at this time will address as necessary. DVT PPX: Heparin Code status: Full Discharge Plan: Home Plan to discharge in: 48 Hours - Advance Directives Does patient have a Living Will: No Does patient have a Durable POA for Healthcare: No - Code Status/Comfort Care Code Status Assessed: Yes (Full code) Critical Care: No Time Spent Managing Pts Care (In Minutes): 55
--- NOTE | 2021-02-03 02:23 | ER ---
Nurse's Notes [facility] Name: Seth Milligan Age: 45 yrs Sex: Male : 1975 Arrival Date: 02/02/2021 Time: 22:32 Bed 4 Private MD: Diagnosis: Syncope;Acute Kidney Injury;Methamphetamine Abuse Presentation: 02/02 22:33 Chief complaint: EMS states: was at home and had some heart burn that woke him up, got em up and had a syncopal episode, fell and it left side of chest, reports chest pain and dizziness, BP on scene was 99/63. Coronavirus screen: The client reports previous COVID testing was negative. Ebola Screen: Patient negative for fever greater than or equal to 101.5 degrees Fahrenheit, and additional compatible Ebola Virus Disease symptoms Patient denies exposure to infectious person. Patient denies travel to an Ebola-affected area in the 21 days before illness onset. No symptoms or risks identified at this time. Initial Sepsis Screen: Does the patient meet any 2 criteria? No. Patient's initial sepsis screen is negative. Does the patient have a suspected source of infection? No. Patient's initial sepsis screen is negative. Risk Assessment: Do you want to hurt yourself or someone else? Patient reports no desire to harm self or others. Onset of symptoms was February 02, 2021. 22:33 Method Of Arrival: EMS: [facility] em 22:33 Acuity: FRANK 2 em Historical: - Allergies: 22:35 No Known Allergies; em - PMHx: 22:35 Hypertension; Diabetes mellitus; em - Immunization history:: Adult Immunizations up to date. - Social history:: Smoking status: Patient denies any tobacco usage or history of. Screenin:43 Abuse screen: Denies threats or abuse. Nutritional screening: On. Tuberculosis ch4 screening: No symptoms or risk factors identified. Fall Risk None identified. Assessment: 22:43 General: Appears distressed, Behavior is calm, cooperative. Pain: Complains of pain in ch4 abdomen. Neuro: No deficits noted. Cardiovascular: No deficits noted. Respiratory: No deficits noted. GI: Reports indigestion. : No deficits noted. EENT: No deficits noted. Derm: No deficits noted. Musculoskeletal: No deficits noted. Vital Signs: 22:33 BP 97 / 68; Pulse 78; Resp 18; Temp 98.1(O); Pulse Ox 99% on R/A; Weight 103.87 kg; em Height 5 ft. 0 in. (152.40 cm); 22:48 BP 110 / 75; Pulse 91; Resp 17; Pulse Ox 98% on R/A; ch4 02/03 00:54 BP 93 / 58; Pulse 79; Resp 12; Pulse Ox 98% on R/A; ch4 01:41 BP 115 / 70; Pulse 74; Resp 26; Pulse Ox 100% on R/A; ch4 02/02 22:33 Body Mass Index 44.72 (103.87 kg, 152.40 cm) em Vitals: 02/02 22:43 Cardiac Rhythm Assessment Regular. ch4 Jose Coma Score: 22:43 Eye Response: spontaneous(4). Verbal Response: oriented(5). Motor Response: obeys ch4 commands(6). Total: 15. ED Course: 22:32 Patient arrived in ED. em 22:35 Dariana Garcia, BRIGID is Primary Nurse. [facility] 22:35 Triage completed. em 22:35 Arm band placed on. em 22:39 Sheng Currie MD is Attending Physician. 7 22:43 Patient has correct armband on for positive identification. Placed in gown. Bed in low ch4 position. Call light in reach. Side rails up X 1. 22:43 Inserted saline lock: 18 gauge in right antecubital area, using aseptic technique. ch4 23:14 XRAY Chest (1 view) In Process Unspecified. EDMS 23:14 glucometer results - FOR PT WITH NO ID Sent. ch4 23:36 Lipase Sent. ch4 02/03 00:10 CT Head Brain wo Cont Sent. ch4 00:10 CT Abd/Pelvis - Without Contrast Sent. ch4 00:13 CT Head Brain wo Cont In Process Unspecified. EDMS 00:13 CT Abd/Pelvis - Without Contrast In Process Unspecified. EDMS 02:20 Rommel Bhagat MD is Hospitalizing Provider. 7 07:00 No provider procedures requiring assistance completed. Patient admitted, IV remains in ea place. Administered Medications: 02/02 23:45 Drug: NS 0.9% 1000 ml Route: IV; Rate: 1000 ml; Site: right antecubital; ch4 02/03 02:44 Follow up: Response: No adverse reaction; IV Status: Completed infusion; IV Intake: ea 1000ml 00:41 Drug: morphine 4 mg Route: IVP; Site: right antecubital; ch4 00:41 Drug: Zofran (Ondansetron) 4 mg Route: IVP; Site: right antecubital; ch4 02:35 Drug: NS 0.9% 1000 ml Route: IV; Rate: 1000 ml; Site: right antecubital; ch4 03:54 Drug: NS 0.9% 1000 ml Route: IV; Rate: 125 ml/hr; Site: right antecubital; ch4 Point of Care Testing: Urine Dip: 00:29 pH: 6; ; Specific [place]: 1.030; ch4 Intake: 02:44 IV: 1000ml; Total: 1000ml. Outcome: 02:21 Decision to Hospitalize by Provider. Anel 07:00 Admitted to ER Hold. [facility]. ea 07:00 Condition: stable 07:00 Instructed on the need for admit, Demonstrated understanding of instructions. 14:33 Patient left the ED. ch5 Signatures: Dispatcher [employer] Keith Richard, RN BRIGID Nelda Ngo RN RN ea Holmes, Maurice, MD MD [facility] Dariana Garcia RN RN [facility] Damion Rajput RN RN 5
--- NOTE | 2021-02-03 02:23 | EDPHYS ---
Physician Documentation [facility] Name: Seth Milligan Age: 45 yrs Sex: Male : 1975 Arrival Date: 02/02/2021 Time: 22:32 Bed 4 Private MD: EAN Physician Sheng Currie HPI: 02/02 22:40 This 45 yrs old Male presents to ER via EMS with complaints of Paased out. mh7 22:40 The patient has experienced syncope, collapsed, lost consciousness. Onset: The mh7 symptoms/episode began/occurred today, tonight. Duration: This was a single episode, that lasted an unknown period of time. Context: the episode(s) was witnessed, by no one, the downtime is unknown, occurred at home, occurred while the patient was standing, Just prior to the episode the patient experienced Heartburn. Associated injury: Abdomen: left lower quadrant, pain, tenderness. Associated signs and symptoms: Pertinent positives: abdominal pain, dizziness, Pertinent negatives: agitation, ataxia, blurred vision, chest pain, combativeness, confusion, diaphoresis, diarrhea, headache, nausea, numbness, palpitations, seizure, shortness of breath, tingling, vomiting, weakness. Current symptoms: Dizziness. Patient admitted to drinking alcohol today and reports using methamphetamine 2 days ago.. Historical: - Allergies: 22:35 No Known Allergies; em - PMHx: 22:35 Hypertension; Diabetes mellitus; em - Immunization history:: Adult Immunizations up to date. - Social history:: Smoking status: Patient denies any tobacco usage or history of. ROS: 22:40 Constitutional: Negative for fever, chills, and weight loss, Eyes: Negative for injury, mh7 pain, redness, and discharge, ENT: Negative for injury, pain, and discharge, Neck: Negative for injury, pain, and swelling, Cardiovascular: Negative for chest pain, palpitations, and edema, Respiratory: Negative for shortness of breath, cough, wheezing, and pleuritic chest pain, Back: Negative for injury and pain, : Negative for injury, bleeding, discharge, and swelling, MS/Extremity: Negative for injury and deformity, Skin: Negative for injury, rash, and discoloration, Neuro: Negative for headache, weakness, numbness, tingling, and seizure, Psych: Negative for depression, anxiety, suicide ideation, homicidal ideation, and hallucinations, Allergy/Immunology: Negative for hives, rash, and allergies, Endocrine: Negative for neck swelling, polydipsia, polyuria, polyphagia, and marked weight changes, Hematologic/Lymphatic: Negative for swollen nodes, abnormal bleeding, and unusual bruising. Exam: 22:40 Constitutional: This is a well developed, well nourished patient who is awake, alert, mh7 and in no acute distress. Head/Face: Normocephalic, atraumatic. Eyes: Pupils equal round and reactive to light, extra-ocular motions intact. Lids and lashes normal. Conjunctiva and sclera are non-icteric and not injected. Cornea within normal limits. Periorbital areas with no swelling, redness, or edema. Neck: Trachea midline, no thyromegaly or masses palpated, and no cervical lymphadenopathy. Supple, full range of motion without nuchal rigidity, or vertebral point tenderness. No Meningismus. Chest/axilla: Normal chest wall appearance and motion. Nontender with no deformity. No lesions are appreciated. Cardiovascular: Regular rate and rhythm with a normal S1 and S2. No gallops, murmurs, or rubs. Normal PMI, no JVD. No pulse deficits. Respiratory: Lungs have equal breath sounds bilaterally, clear to auscultation and percussion. No rales, rhonchi or wheezes noted. No increased work of breathing, no retractions or nasal flaring. 22:40 Back: No spinal tenderness. No costovertebral tenderness. Full range of motion. Skin: Warm, dry with normal turgor. Normal color with no rashes, no lesions, and no evidence of cellulitis. MS/ Extremity: Pulses equal, no cyanosis. Neurovascular intact. Full, normal range of motion. Neuro: Awake and alert, GCS 15, oriented to person, place, time, and situation. Cranial nerves II-XII grossly intact. Motor strength 5/5 in all extremities. Sensory grossly intact. Cerebellar exam normal. Normal gait. Psych: Awake, alert, with orientation to person, place and time. Behavior, mood, and affect are within normal limits. 22:40 Abdomen/GI: Inspection: abdomen appears normal, Bowel sounds: normal, in all quadrants, Palpation: mild abdominal tenderness, in the left lower quadrant, mass, is not appreciated, rebound tenderness, is not appreciated, voluntary guarding, is not appreciated, involuntary guarding, is not appreciated, no appreciated organomegaly, Rectal exam: the exam is deferred, because of patient request, Indicators: McBurney's point is not tender, Kaufman's sign is negative, Rovsing's sign is negative, Obturator sign is negative, Psoas sign is negative, Liver: no appreciated palpable abnormalities, Hernia: not appreciated. Vital Signs: 22:33 BP 97 / 68; Pulse 78; Resp 18; Temp 98.1(O); Pulse Ox 99% on R/A; Weight 103.87 kg; em Height 5 ft. 0 in. (152.40 cm); 22:48 BP 110 / 75; Pulse 91; Resp 17; Pulse Ox 98% on R/A; ch4 02/03 00:54 BP 93 / 58; Pulse 79; Resp 12; Pulse Ox 98% on R/A; ch4 01:41 BP 115 / 70; Pulse 74; Resp 26; Pulse Ox 100% on R/A; ch4 02/02 22:33 Body Mass Index 44.72 (103.87 kg, 152.40 cm) em [place] Coma Score: 02/02 22:43 Eye Response: spontaneous(4). Verbal Response: oriented(5). Motor Response: obeys ch4 commands(6). Total: 15. MDM: 02/03 02:18 Differential Diagnosis: cardiac arrhythmia, drug effect, emotional response, idiopathic mh7 syncope, pseudo seizure, seizure, vasovagal episode. Data reviewed: vital signs, nurses notes, lab test result(s), cardiac enzymes, CBC, electrolytes, urinalysis, EKG, radiologic studies, CT scan, plain films. Data interpreted: Pulse oximetry: on room air is 100 %. Interpretation: normal. Counseling: I had a detailed discussion with the patient and/or guardian regarding: the historical points, exam findings, and any diagnostic results supporting the discharge/admit diagnosis, lab results, radiology results, the need for further work-up and treatment in the hospital. Response to treatment: the patient's symptoms have markedly improved after treatment. 02:21 Patient medically screened. [facility] 02/02 22:35 Order name: Basic Metabolic Panel; Complete Time: 23:23 [facility] 02/02 22:35 Order name: CBC with Diff; Complete Time: 23:23 [facility] 02/02 22:35 Order name: LFT's; Complete Time: 23:23 [facility] 02/02 22:35 Order name: Magnesium; Complete Time: 23:23 [facility] 02/02 22:35 Order name: NT PRO-BNP; Complete Time: 23:23 [facility] 02/02 22:35 Order name: PT-INR; Complete Time: 23:23 [facility] 02/02 22:35 Order name: Troponin (emerg Dept Use Only); Complete Time: 23:23 [facility] 02/02 22:36 Order name: glucometer results - FOR PT WITH NO ID [facility] 02/02 22:37 Order name: Glucose, Ancillary(No Armband) [facility] 02/02 22:54 Order name: UDS; Complete Time: 01:35 [facility] 02/02 22:54 Order name: ETOH Level; Complete Time: 23:38 [facility] 02/02 22:56 Order name: CPK; Complete Time: 23:38 [facility] 02/02 23:31 Order name: Lipase [facility] 02/02 23:32 Order name: Lipase; Complete Time: 00:15 [facility] 02/02 22:35 Order name: XRAY Chest (1 view) [facility] 02/02 23:34 Order name: CT Head Brain wo Cont [facility] 02/03 00:28 Order name: Urine Dipstick-Ancillary; Complete Time: 00:30 [facility] 02/03 06:11 Order name: Comprehensive Metabolic Panel [facility] 02/03 06:11 Order name: Uric Acid [facility] 02/03 06:11 Order name: Troponin I [facility] 02/03 06:11 Order name: Lipid Profile [facility] 02/03 06:11 Order name: T4 Free [facility] 02/03 06:11 Order name: Thyroid Stimulating Hormone [facility] 02/03 06:17 Order name: COVID-19 : Document "Date of Symptom Onset" if Symptomatic. 02/03 06:24 Order name: Hemoglobin A1c [facility] 02/03 06:48 Order name: CORONAVIRUS [facility] 02/03 08:27 Order name: Glucose, Ancillary Testing [facility] 02/03 08:51 Order name: SARS-COV-2 RT PCR [facility] 02/03 11:50 Order name: Glucose, Ancillary Testing [facility] 02/03 12:11 Order name: Troponin I [facility] 02/02 22:35 Order name: EKG; Complete Time: 22:36 [facility] 02/02 22:35 Order name: Cardiac monitoring; Complete Time: 22:36 [facility] 02/02 22:35 Order name: EKG - Nurse/Tech; Complete Time: 22:35 [facility] 02/02 22:35 Order name: IV Saline Lock; Complete Time: 22:36 [facility] 02/02 22:35 Order name: Labs collected and sent; Complete Time: 22:36 [facility] 02/02 22:35 Order name: O2 Per Protocol; Complete Time: 22:36 [facility] 02/02 22:35 Order name: O2 Sat Monitoring; Complete Time: 22:36 [facility] 02/02 22:54 Order name: Urine Dipstick-Ancillary (obtain specimen); Complete Time: 00:29 [facility] 02/02 23:34 Order name: CT Abd/Pelvis - Without Contrast [facility] 02/03 09:21 Order name: US EDMS Administered Medications: 02/02 23:45 Drug: NS 0.9% 1000 ml Route: IV; Rate: 1000 ml; Site: right antecubital; [facility] 02/03 02:44 Follow up: Response: No adverse reaction; IV Status: Completed infusion; IV Intake: ea 1000ml 00:41 Drug: morphine 4 mg Route: IVP; Site: right antecubital; ch4 00:41 Drug: Zofran (Ondansetron) 4 mg Route: IVP; Site: right antecubital; ch4 02:35 Drug: NS 0.9% 1000 ml Route: IV; Rate: 1000 ml; Site: right antecubital; ch4 03:54 Drug: NS 0.9% 1000 ml Route: IV; Rate: 125 ml/hr; Site: right antecubital; ch4 Point of Care Testing: Urine Dip: 00:29 pH: 6; ; Specific [place]: 1.030; ch4 Disposition Summary: 02/03/21 02:21 Hospitalization Ordered Hospitalization Status: Inpatient Admission [facility] Provider: Rommel Bhagat Condition: Stable [facility] Problem: new [facility] Symptoms: have improved [facility] Bed/Room Type: Standard [facility] Location: Telemetry/MedSurg (Inpatient)(02/03/21 14:02) eb Room Assignment: [facility](02/03/21 14:02) eb Diagnosis - Syncope mh7 - Acute Kidney Injury 7 - Methamphetamine Abuse mh7 Forms: - Medication Reconciliation Form [facility] - SBAR form [facility] Signatures: Dispatcher [employer] EDKeith Gomez, BRIGID RN Ke Gould, CARTRIDGE BELT PUNCHER-C CARTRIDGE BELT PUNCHER-Silvia1 Theresa Maria RN RN Anita Zaragoza Maurice, MD MD [facility] Dariana Garcia RN RN ch4 Antunez, Elena RN ea Corrections: (The following items were deleted from the chart) 02:37 02:21 Telemetry/MedSurg (Inpatient) [facility] cg 02:37 02:21 [facility] cg 14:02 02:37 [facility] ER HOLD cg eb 14:02 02:37 ERHOLD- cg eb
[2021-02-03] MEDS ORDERED: NA CHLORIDE 0.9% 2,000 ML ONE (02:30)
[2021-02-03] MEDS ORDERED: ONDANSETRON 4 MG/2 ML VIAL IV PRN (02:42)
[2021-02-03] MEDS: NA CHLORIDE 0.9% 1,000 ML IV SCH ×3 (02:42→17:15)
[2021-02-03] MEDS ORDERED: MORPHINE 4 MG/ML SYR IV ONE (05:14)
[2021-02-03] MEDS: METOPROLOL TAR 25 MG TAB PO SCH ×2 (05:49→17:17)
[2021-02-03 06:09] LABS: ALT/SGPT 51 U/L (12-78); AST/SGOT 30 U/L (15-37); Albumin 3.1 g/dL (3.4-5.0); Alkaline Phosphatase 84 U/L (45-117); BUN Blood Urea Nitrogen 32 mg/dL (7-18); Bicarbonate 25 mmol/L (21-32); Bilirubin Total 0.4 mg/dL (0.2-1.0); Glucose Level 301 mg/dL (74-106); HDL Cholesterol 48 mg/dL (40-60); LDL Cholesterol, Calculated 115 (<130); Potassium 3.9 mmol/L (3.5-5.1); Sodium Level 135 mmol/L (136-145); Troponin I < 0.02 ng/mL (0.0-0.045); Uric Acid 9.3 mg/dL (3.5-7.2)
[2021-02-03] MEDS: INSULIN -REGULAR HUMAN 50 UNIT/0.5 ML ML SQ SCH ×4 (07:30→21:00)
[2021-02-03] MEDS ORDERED: ASPIRIN 81 MG CHEWABLE TABLET ONE (08:21)
[2021-02-03] MEDS ORDERED: HEPARIN 5000 UNIT/ML 1 ML VIAL ONE (08:21)
[2021-02-03] MEDS: HEPARIN 5000 UNIT/ML 1 ML VIAL SQ SCH ×2 (08:29→20:49)
[2021-02-03] MEDS: ASPIRIN EC 81 MG TAB PO SCH (08:30)
[2021-02-03] MEDS ORDERED: INSULIN GLARGINE 100 UNITS/ML SQ ONE (08:45)
[2021-02-03] MEDS ORDERED: INSULIN -REGULAR HUMAN 50 UNIT/0.5 ML ML ONE (08:46)
--- NOTE | 2021-02-03 09:21 | RAD REPORT ---
EXAM DESCRIPTION: US - Renal Ultrasound-Complete - 02/03/2021 4:31 am CLINICAL HISTORY: ARF COMPARISON: Abdomen Pelvis Wo Contrast dated 02/03/2021None. FINDINGS: Kidneys are symmetric and normal in size. Renal cortical thickness and echogenicity are no rmal. No hydronephrosis or suspicious renal mass. Punctate echogenic foci in the right kidney may be prominent vessels. Earlier CT study showed no right renal calcifications. No bladder wall thickening or mass. No intraluminal stone or mass. IMPRESSION: No hydronephrosis or suspicious renal mass. No other significant findings.
--- NOTE | 2021-02-03 09:22 | RAD REPORT ---
EXAM DESCRIPTION: RAD - Chest Single View - 02/02/2021 11:14 pm CLINICAL HISTORY: CHEST PAIN COMPARISON: January 15 TECHNIQUE: AP portable chest image was obtained 02/02/2021 11:14 pm . FINDINGS: Lung volumes are low compared to the prior study. Right hemidiaphragm elevation again note d. Right base atelectasis is seen. No significant lung parenchymal process. Failure and volume overlo ad are not suspected. Heart and vasculature are normal. No measurable pleural effusion and no pneumot horax. No acute bony abnormality seen. No acute aortic findings suspected. IMPRESSION: No acute cardiopulmonary process. No significant change from comparison study.
--- NOTE | 2021-02-03 14:03 | RAD REPORT ---
EXAM DESCRIPTION: CT - Abdomen Pelvis Wo Contrast - 02/03/2021 6:38 am CLINICAL HISTORY: 45 years Male ABD PAIN COMPARISON: 10/11/2020. TECHNIQUE: Contiguous axial images obtained through the abdomen and pelvis without IV contrast. Refo rmatted images obtained. This exam was performed according to our department optimization program which includes automated exp osure control, adjustment of the mA and/or kv according to patient size and/or use of iterative recon struction technique. FINDINGS: Patchy groundglass and interstitial opacities in the lower lungs new since the previous st udy. The findings could be from an infectious/inflammatory process including covid pneumonia. The liver appears unremarkable. The spleen appears unremarkable. The pancreas appears unremarkable. The previously visualized changes of pancreatitis have resolved. No adrenal masses. The kidneys appear unremarkable. No hydronephrosis or definite ureteral calculi. The gallbladder is visualized. Mild atherosclerotic calcifications. No aneurysmal dilatation of the aorta. No bowel obstruction. The appendix is not visualized. There is fluid in the distal colon suggesting a diarrheal state. No significant free pelvic fluid. There is a fat-containing left inguinal hernia. Degenerative changes in the spine. IMPRESSION: 1. Patchy groundglass and interstitial opacities in the lower lungs new since the prev ious study. The findings could be from an infectious/inflammatory process including covid pneumonia. 2. There is fluid in the distal colon suggesting a diarrheal state. Electronically signed by: Barney Dejesus MD 02/03/2021 12:46 AM CDT Due to temporary technical issues with the PACS/Fluency reporting system, reports are being signed by the in house radiologists without review as a courtesy to insure prompt reporting. The interpreting radiologist is fully responsible for the content of the report.
--- NOTE | 2021-02-03 14:27 | RAD REPORT ---
EXAM DESCRIPTION: CT - Head Brain Wo Cont - 02/03/2021 6:38 am CLINICAL HISTORY: 45 years Male SYNCOPE COMPARISON: None. TECHNIQUE: Contiguous axial CT images obtained through the brain without IV contrast. This exam was performed according to our department optimization program which includes automated exp osure control, adjustment of the mA and/or kv according to patient size and/or use of iterative recon struction technique. FINDINGS: The ventricles and sulci appear unremarkable. No abnormal areas of decreased density are identified. No mass lesions. No acute hemorrhage. Mild mucosal thickening in the right sphenoid sinus. No depressed calvarial fractures. IMPRESSION: No acute intracranial abnormality is identified. Electronically signed by: Barney Dejesus MD 02/03/2021 12:39 AM CDT Due to temporary technical issues with the PACS/Fluency reporting system, reports are being signed by the in house radiologists without review as a courtesy to insure prompt reporting. The interpreting radiologist is fully responsible for the content of the report.
[2021-02-03] MEDS ORDERED: MORPHINE 2 MG/ML SYR IV ONE (15:06)
[2021-02-03] MEDS: ATORVASTATIN 40 MG TAB PO SCH (20:49)
[2021-02-03 21:50] LABS: Urine Appearance CLOUDY (Clear); Urine Bilirubin NEGATIVE (Negative); Urine Blood 2+ (Negative); Urine Color YELLOW (Yellow); Urine Glucose 3+ (Negative); Urine Protein NEGATIVE (Negative); Urine Specific Gravity 1.015 (1.005-1.030); Urine Urobilinogen 0.2 mg/dL (0.2-1.0)
[2021-02-03 22:20] VITALS: O2SAT 97
[2021-02-03 22:21] LABS: Urine Bacteria >50 /HPF (NONE SEEN); Urine Mucus 2+ /HPF (NONE SEEN)
[2021-02-04] MEDS: NA CHLORIDE 0.9% 1,000 ML IV SCH ×3 (01:26→17:11)
[2021-02-04 04:38] LABS: Absolute Lymphocytes (CBC) 3.2 K/uL (0.7-4.9); Basophils % 0.4 % (0-1.3); Hematocrit 32.3 % (39.6-49.0); Lymphocytes % 35.2 % (15.3-44.8); MPV 8.4 fL (7.6-11.3); RBC Red Blood Cell Count 3.86 M/uL (4.33-5.43)
[2021-02-04 04:59] LABS: Albumin 2.6 g/dL (3.4-5.0); Bilirubin Total 0.2 mg/dL (0.2-1.0); Magnesium 1.7 mg/dL (1.8-2.4); Potassium 3.7 mmol/L (3.5-5.1)
[2021-02-04] MEDS: METOPROLOL TAR 25 MG TAB PO SCH ×2 (05:23→17:08)
[2021-02-04] MEDS: INSULIN -REGULAR HUMAN 50 UNIT/0.5 ML ML SQ SCH ×5 (07:30→21:00)
--- NOTE | 2021-02-04 07:51 | CON ---
Date of Consultation: 02/03/2021 Reason For Consultation: Syncope and acute renal failure. History Of Present Illness: Mr. Muniz is a 45-year-old with history of hypertension and dyslipidemi a. Apparently, he has felt rather dehydrated and had an episode where he got out of bed. He does no t remember what happened after that. He had a syncopal episode. Prior to the syncope, he did not peraza ving any chest pain, nausea, vomiting, diaphoresis, PND, orthopnea, pedal edema, or palpitation. He denied any fever or chills. Past Medical History: As stated above. Allergies: NONE. Review of Systems: Negative. Social History: Negative. Family History: Noncontributory. Medications: At home include aspirin, metformin, metoprolol, and Lopid. Physical Examination: General: He was very pleasant, slightly anxious. Vital Signs: Otherwise, sinus rhythm afebrile. Vital signs were stable. HEENT: Negative. Neck: Supple. No bruit. Chest: Clear to auscultation and percussion. Cardiac: Revealed a regular rhythm and rate. No murmurs, gallops, or rubs. Abdomen: Benign. Extremities: Revealed no clubbing, cyanosis, or edema. Diagnostic Data: EKG was normal. Chest x-ray was normal. Renal Doppler was normal. White count wa s 18,000, glucose was 301, triglyceride 282, his creatinine was 3.09, cholesterol 220. Urinalysis sh ows positive amphetamine. Impression And Plan: 1.Syncope secondary to orthostatic hypotension and dehydration. 2.Renal failure secondary to dehydration. 3.Elevated white count. 4.Diabetes, poorly controlled. 5.Dyslipidemia, poorly controlled. 6.Positive amphetamine in urinalysis. 7.Hypertension, well controlled. I would continue his regimen. As far as the metoprolol and Lopid are concerned, I think, he would be nefit from a statin in addition to his Lopid. He is on metformin and aspirin, which may have to be h eld because of his creatinine at this point. Nephrology is following. I think, I would hydrate him aggressively and get an echocardiogram, maybe have him do an outpatient stress test and a carotid Dop pler down the road. TONYA/DAMIR Voice ID: [id number] Report ID: [id number]
[2021-02-04] MEDS: ASPIRIN EC 81 MG TAB PO SCH (08:24)
[2021-02-04] MEDS: HEPARIN 5000 UNIT/ML 1 ML VIAL SQ SCH ×2 (08:24→21:07)
--- NOTE | 2021-02-04 11:37 | PN ---
Subjective: The patient currently lying in bed. He looks comfortable. He has no chest pain. No ab dominal pain, but he continued to be feeling tired, fatigue, poor energy, muscle ache all over his pierce dy. He continued to be on IV fluid. Review of Systems: Otherwise as below. Objective: Vital Signs: Currently, blood pressure 116/66, respiratory rate 18, pulse 60, temperatur e 98.3, saturating 97% on room air. General: He is alert and oriented x3. He does look in mild distress. HEENT: Atraumatic, normocephalic. PERRLA. Oral mucosa is moist. Neck: Supple. No JVD. No carotid bruits. Chest: Clear to auscultation. Good air entry. Heart: Regular rate and rhythm. S1, S2 normal. No gallop or murmur. Abdomen: Soft, nontender. No masses. No hepatosplenomegaly. Positive bowel sounds. Extremities: No clubbing, cyanosis, or edema. No calf tenderness. Neurologic: Grossly intact. Cranial exam 2 through 12 intact. Normal sensation. Normal reflexes. Normal muscle strength. Diagnostic Studies: Labs today showed CBC within normal except for mild anemia at hemoglobin at 11. Chemistry within normal except for chloride 109, BUN of 28, creatinine down to 1.33, GFR of 58, gluc ose 157 to 245 range. Low calcium and magnesium at 7.5 and 1.7 with low albumin at 2.6. Assessment And Plan: 1.Acute renal failure secondary to dehydration. Patient kidney's function improved so much and crea tinine is down to 1.58. We will continue aggressive hydration. Hopefully, until morning it will be normal. Ultrasound done and was unremarkable. Nephrology consult still pending, but I would cancel since patient's kidney function is back to normal. 2.Syncopal episode. Patient's echocardiogram is pending. I will order carotid Doppler via Cardiolo gy recommendation at this point, most likely was vasovagal or orthostatic secondary to patient's denice re dehydration. 3.Chest pain, resolved. Cardiac enzymes were negative. Cardiology suggesting a stress test as outp atient. Continue patient on home medication with gemfibrozil as well as adding statin upon discharge and continue metoprolol at this point. 4.COVID infection. The patient is asymptomatic with O2 saturation normal on room air. Continue pat ient's vitamin supplement and symptomatic treatment for pain and muscle ache. 5.Diabetes mellitus, glucose within control overnight with a range of 157 to 236. The patient's met formin resumed. We will place patient also on insulin sliding scale overnight. 6.Deep vein thrombosis prophylaxis. Patient on heparin. 7.Discharge plan hopefully in a.m. if echo and carotid Doppler done, they were normal and kidney fun ction is back to normal. DOUGLAS/DAMIR Voice ID: [id number] Report ID: [id number]
--- NOTE | 2021-02-04 12:39 | RAD REPORT ---
EXAM DESCRIPTION: USCarotid Artery Bilateral02/04/2021 12:09 pm CLINICAL HISTORY: syncope COMPARISON: None FINDINGS: The velocity of the right internal carotid artery equals 81 cm/sec. The right ICA/CCA rati o .9 The velocity of the left internal carotid artery equals 59 cm/sec. The left ICA/CCA ratio .7 Mild plaque is present within the carotid arteries. The vertebral arteries demonstrate antegrade flow IMPRESSION: Mild plaque within the carotid arteries without evidence of a hemodynamically significan t stenosis NASCET criteria used. Mild 0-49% stenosis Moderate 50-69% stenosis Severe 70-99% stenosis
[2021-02-04] MEDS: ASCORBIC ACID 500 MG TABLET PO SCH ×2 (14:28→21:07)
[2021-02-04] MEDS: METFORMIN HCL 500 MG TAB PO SCH (17:08)
[2021-02-04] MEDS: gemfibroziL 600 MG TAB PO SCH (21:00)
[2021-02-04] MEDS: ATORVASTATIN 40 MG TAB PO SCH (21:06)
[2021-02-05 01:49] VITALS: BMI 44.7
[2021-02-05] MEDS: NA CHLORIDE 0.9% 1,000 ML IV SCH ×3 (02:32→11:27)
[2021-02-05] MEDS: METOPROLOL TAR 25 MG TAB PO SCH (06:59)
[2021-02-05 07:06] LABS: Absolute Lymphocytes (CBC) 1.8 K/uL (0.7-4.9); Basophils % 0.3 % (0-1.3); Hematocrit 34.2 % (39.6-49.0); Lymphocytes % 16.1 % (15.3-44.8); MPV 8.8 fL (7.6-11.3); RBC Red Blood Cell Count 4.09 M/uL (4.33-5.43)
[2021-02-05 07:24] LABS: Albumin 2.7 g/dL (3.4-5.0); Bilirubin Total 0.4 mg/dL (0.2-1.0); Magnesium 1.5 mg/dL (1.8-2.4); Potassium 3.8 mmol/L (3.5-5.1); Protein, Total 6.5 g/dL (6.4-8.2)
[2021-02-05] MEDS: INSULIN -REGULAR HUMAN 50 UNIT/0.5 ML ML SQ SCH ×3 (07:30→12:10)
[2021-02-05] MEDS ORDERED: clonazePAM 0.5 MG TAB PO SCH (09:00)
[2021-02-05] MEDS ORDERED: cloNIDine HCL 0.1 MG TAB PO SCH (09:00)
[2021-02-05] MEDS ORDERED: FOLIC ACID 1 MG TABLET PO SCH (09:00)
[2021-02-05] MEDS ORDERED: ZINC SULFATE 220 MG CAP PO SCH (09:00)
[2021-02-05] MEDS ORDERED: THIAMINE HCL 100 MG TABLET PO SCH (09:00)
[2021-02-05] MEDS ORDERED: ASPIRIN EC 81 MG TAB PO SCH (09:00)
[2021-02-05] MEDS ORDERED: VITAMIN D 1000 UNIT TAB PO SCH (09:00)
[2021-02-05] MEDS: HEPARIN 5000 UNIT/ML 1 ML VIAL SQ SCH (09:07)
[2021-02-05] MEDS: ASCORBIC ACID 500 MG TABLET PO SCH (09:07)
[2021-02-05] MEDS: gemfibroziL 600 MG TAB PO SCH (09:08)
[2021-02-05] MEDS: METFORMIN HCL 500 MG TAB PO SCH (09:08)
[2021-02-05 12:45] VITALS: BP 129/63; TEMP 97.4
--- NOTE | 2021-02-05 14:58 | ECHO ---
HEIGHT: 5 ft 0 in WEIGHT: 228 lb 15.906 oz DATE OF STUDY: 02/05/[address]: Ke Fowler NP 2-DIMENSIONAL: YES M.MODE: YES DOPPLER: YES COLOR FLOW: YES TDS: NO PORTABLE: YES DEFINITY: NO BUBBLE STUDY: NO DIAGNOSIS: CHEST PAIN, SYNCOPE CARDIAC HISTORY: CATHERIZATION: NO SURGERY: NO PROSTHETIC VALVE: NO PACEMAKER: NO MEASUREMENTS (cm) DIASTOLIC (NORMALS) SYSTOLIC (NORMALS) IVSd 1.2 (0.6-1.2) LA Diam 3.4 (1.9-4.0) LVEF 60-65% LVIDd 4.7 (3.5-5.7) LVIDs 2.7 (2.0-3.5) %FS 43% LVPWd 1.3 (0.6-1.2) Ao Diam 2.6 (2.0-3.7) 2 DIMENSIONAL ASSESSMENT: RIGHT ATRIUM: NORMAL LEFT ATRIUM: NORMAL RIGHT VENTRICLE: NORMAL LEFT VENTRICLE: NORMAL TRICUSPID VALVE: MILD TRICUSPID REGURGITATION MITRAL VALVE: MILD MITRAL REGURGITATION PULMONIC VALVE: NORMAL AORTIC VALVE: NORMAL PERICARDIAL EFFUSION: NONE AORTIC ROOT: NORMAL LEFT VENTRICULAR WALL MOTION: NORMAL. DOPPLER/COLOR FLOW: SEE BELOW. COMMENTS: NORMAL LEFT VENTRICULAR EJECTION FRACTION 60-65%. NORMAL WALL MOTION. MILD TRICUSPID REGURGITATION, MILD MITRAL REGURGITATION. TECHNOLOGIST: BRADEN WALKER
--- NOTE | 2021-02-12 09:46 | P.DS ---
Discharge Date: 02/05/21 Disposition: ROUTINE DISCHARGE Discharge Condition: GOOD Reason for Admission: Acute renal failure, chest pain, syncope Brief History of Present Illness: 45-year-old male with history of hypertension, diabetes metas type II presents emergency department for syncope, chest pain. Patient reports that he was asleep in bed when he woke up with "heartburn symptoms" when he got up to take medicine he had a syncopal episode, lost consciousness and woke up on the floor. Patient reports he began having left-sided chest pain after the fall. Initially patient was hypotensive upon arrival to the emergency room with blood pressure 90/60. Patient's labs revealed white blood cell count 18.4 sodium 132 creatinine 3.3 glucose 241 BNP 538 and methamphetamine positive blood pressure improved with IV fluids currently 115/70, patient denies any known history of kidney disease, does report that he recently had Covid but has recovered. Patient's most creatinine was 1.39 on 01/12/2021. Labs from September 2020 creatinine 0.6. Will admit for acute renal failure, syncope, chest pain, methamphetamine abuse. Hospital Course: Patient was admitted to the hospital and started on IV fluids. Patient normally has a normal renal function but Creatinine was significantly elevated at 3.3. GFR was less than 20. After IV hydration and patient's renal function started improving. Today patient's renal function is back to baseline. Continue with hydrating himself as an outpatient. Repeat labs in 1-2 weeks with his PCP. Vital Signs/Physical Exam: Temp Pulse Resp BP Pulse Ox 97.4 F 54 16 129/63 98 02/05/21 12:00 02/05/21 12:00 02/05/21 12:00 02/05/21 12:00 02/05/21 12:00 General: Alert, In no apparent distress, Oriented x3 Laboratory Data at Discharge: WBC 11.10 K/uL (4.3-10.9) H D 02/05/21 06:33 Hgb 11.4 g/dL (13.6-17.9) L 02/05/21 06:33 Hct 34.2 % (39.6-49.0) L 02/05/21 06:33 Plt Count 187 K/uL (152-406) 02/05/21 06:33 PT 11.2 SECONDS (9.5-12.5) 02/02/21 22:37 INR 0.97 02/02/21 22:37 Sodium 141 mmol/L (136-145) 02/05/21 06:33 Potassium 3.8 mmol/L (3.5-5.1) 02/05/21 06:33 BUN 16 mg/dL (7-18) 02/05/21 06:33 Creatinine 0.92 mg/dL (0.55-1.3) 02/05/21 06:33 Glucose 206 mg/dL (74-106) H 02/05/21 06:33 Uric Acid 9.3 mg/dL (3.5-7.2) H 02/03/21 05:06 Magnesium 1.5 mg/dL (1.8-2.4) L 02/05/21 06:33 Total Bilirubin 0.4 mg/dL (0.2-1.0) 02/05/21 06:33 AST 13 U/L (15-37) L 02/05/21 06:33 ALT 30 U/L (12-78) 02/05/21 06:33 Alkaline Phosphatase 71 U/L (45-117) 02/05/21 06:33 Troponin I < 0.02 ng/mL (0.0-0.045) 02/03/21 11:17 Triglycerides 286 mg/dL (<150) H 02/03/21 05:06 Cholesterol 220 mg/dL (<200) H 02/03/21 05:06 HDL Cholesterol 48 mg/dL (40-60) 02/03/21 05:06 Cholesterol/HDL Ratio 4.58 02/03/21 05:06 Lipase 250 U/L (73-393) 02/02/21 23:05 Home Medications: Aspirin [Aspirin EC 81 MG] 81 mg PO DAILY #30 tablet. 10/14/20 Docosahexanoic AC/Epa [Fish Oil 1,000 MG*] 2 cap PO BID #120 cap 10/14/20 Folic Acid 1 mg PO DAILY #90 tablet 10/14/20 Melatonin 5 mg PO BEDTIME PRN PRN #30 tablet 10/14/20 Metformin HCl [Glucophage*] 500 mg PO BIDWM #60 tab 10/14/20 Thiamine HCl [Vitamin B-1*] 100 mg PO DAILY #90 tablet 10/14/20 gemfibroziL [Lopid*] 600 mg PO BID #60 tab 10/14/20 traMADol HCL [Ultram*] 50 mg PO TID PRN #10 tab 10/14/20 Amlodipine [Norvasc] 10 mg PO DAILY #30 tab 02/05/21 Atorvastatin Calcium [Lipitor] 40 mg PO BEDTIME #30 tab 02/05/21 Losartan Potassium 50 mg PO BID #60 tablet 02/05/21 Zinc Sulfate [Zinc Sulfate*] 220 mg PO DAILY #30 cap 02/05/21 clonazePAM [Klonopin] 1 mg PO BIDP PRN #30 tab 02/05/21 New Medications: clonazePAM [Klonopin] 1 mg PO BIDP PRN #30 tab PRN Reason: Anxiety Atorvastatin Calcium [Lipitor] 40 mg PO BEDTIME #30 tab Losartan Potassium 50 mg PO BID #60 tablet Amlodipine [Norvasc] 10 mg PO DAILY #30 tab Zinc Sulfate [Zinc Sulfate*] 220 mg PO DAILY #30 cap Physician Discharge Instructions: OK TO DC IV AND DC HOME FOLLOW-UP WITH PRIMARY CARE PROVIDER IN 1-2 WEEKS FOLLOW-UP WITH CARDIOLOGY IN 1-2 WEEKS RETURN TO THE ER IF symptoms worsen CALL or TEXT DR. REGAN AT [phone] IF ANY QUESTIONS REGARDING HOSPITAL STAY. PLEASE CALL THE FLOOR AT [phone] IF ANY MEDICATION OR NURSING QUESTIONS. Diet: AHA Activity: Fall precautions Followup: [facility] [Provider Group] Unknown,U [Primary Care Provider] - Time spent managing pt's care (in minutes): 35
== END 2021-02-05 13:15 | disposition home or self-care (01) | DRG 682 ==
LOC: ER 22:31 → ERHOLD 02-03 01:57 → 4TH 02-03 14:21
PROVIDERS: ADMIT Internal Medicine; ATTEND Internal Medicine
DX: N17.9 Acute kidney failure, unspecified (principal); U07.1 COVID-19; R07.9 Chest pain, unspecified; I95.1 Orthostatic hypotension; E11.65 Type 2 diabetes mellitus with hyperglycemia; E86.0 Dehydration; F15.10 Other stimulant abuse, uncomplicated; I10 Essential (primary) hypertension; E78.5 Hyperlipidemia, unspecified; D72.829 Elevated white blood cell count, unspecified
CPT/HCPCS: 36415; 70450; 71045; 74176; 76770; 80048; 80053; 80061; 80076; 80307; 80320; 81001; 81003; 82550; 82947; 83036; 83690; 83735; 83880; 84439; 84443; 84484; 84550; 85025; 85610; 87040; 87077; 87086; 87088; 87186; 87205; 93005; 93306; 93880; 96361; 96374; 96375; 99285; J1644; J1815; J2270; J2405; J7030; U0003

== ENCOUNTER 2021-04-26 21:15 | Emergency (ER) | payer BC ==
--- OUTSIDE RECORDS SUMMARY | 2021-04-26 21:18 | XMS REPORT | Continuity of Care Document ---
:1975 Author Organization [facility] Address [address] [place] [address] Care Team Providers Name Role Phone Ghislaine [...] Date Clinician No Known DA Active U [facility] Allergie 12-15 [place] 00:00: [facility] 00 are [place] No Known DA Active U [facility] Allergie 12-15 [place] 00:00: [facility] 00 are [place] Medications This patient has no known medications. Procedures This patient has no known procedures. Encounters Start End Encounter Admission Attending Care Care Encounter Source Date/Time Date/Time Type Type Clinicians Facility Department ID 2020-12-15 2020-12-15 Emergency EM GUNNAR Layne EO3 [id number] -2 [facility] 16:35:00 18:47:00 Ghislaine [id number] [place] [facility] [place] Results Test Description Test Time Test Comments Results Result [facility] e Comments - XR SHOULDER 2 + 2020-12-15 V RT 18:09:00 [facility] : 1975 Sex: M Moise shaw Name: ERMIAS GONZALEZ Unit No: [id number] EXAMS: CPT: [id number] XR SHOULDER 2 + [place] RT [id number] RADIOGRAPH: Right shoulder 3 views COMPARISON: None CLINICAL HISTORY: Injury FINDINGS: No acute fracture or dislocation identified. Degenerative changes are seen in the AC joint. No suspicious osseous lesions seen. IMPRESSION: No acute fracture or dislocation identified. at 1809 Reported and signed by: Markos Hoffman MD CC: Ghislaine Layne MD Technologist: SARWAT SHELTON Trscr Dt/Tm: 12/15/2020 (1808) by:HongHNN Orig Print D/T: S: 12/15/2020 (1811) BATCH NO: N/A Name: ERMIAS GONZALEZ [facility] Emergency Dept Phys: 21 - [facility] [id number] [facility] 1975 Age: 45 Sex: M [place] [id number] [facility] Ex[facility] Date: 12/15/2020 Status: REG ER PH: [phone] FAX: PAGE 1 Signed Report - XR L-SPINE 06/212020-12-15 VIEWS 18:07:00 [facility] : 1975 Sex: M Moise shaw Name: ERMIAS GONZALEZ Unit No: [id number] EXAMS: CPT: [id number] XR L-SPINE 2/3 VIEWS 58517 LUMBAR SPINE 3 VIEWS: COMPARISON: None CLINICAL [...] MD Technologist: SARWAT SHELTON Trscr Dt/Tm: 12/15/2020 (1806) by:Keya Orig Print D/T: S: 12/15/2020 (1809) BATCH NO: N/A Name: ERMIAS GONZALEZ [facility] Emergency Dept Phys: [id number] - Ghislaine Layne [id number] [facility] : 1975 Age: 45 Sex: [place] [address] Loc: [facility] Exam Date: 12/15/2020 Status: REG ER PH: [phone] FAX: PAGE 1 Signed Report
[2021-04-26] MEDS ORDERED: NA CHLORIDE 0.9% 1,000 ML ONE ×2 (21:40→22:53)
[2021-04-26] MEDS ORDERED: ONDANSETRON 4 MG/2 ML VIAL ONE (21:40)
[2021-04-26] MEDS ORDERED: LORazepam 2 MG/ML VIAL ONE (21:40)
[2021-04-26 22:03] LABS: Urine Blood Negative (Negative); Urine Glucose Negative (Negative); Urine Protein Negative (Negative); Urine pH 6.5 (5.0-7.0)
[2021-04-26 22:10] LABS: Absolute Lymphocytes (CBC) 3.5 K/uL (0.7-4.9); Basophils % 0.4 % (0-1.3); Hematocrit 39.7 % (39.6-49.0); MPV 7.1 fL (7.6-11.3)
[2021-04-26 22:16] LABS: Protime INR 1.15
[2021-04-26 22:20] LABS: Barbiturates NEGATIVE (NEGATIVE); Benzodiazepines NEGATIVE (NEGATIVE); Cocaine POSITIVE (NEGATIVE); METHAMPHETAM NEGATIVE (NEGATIVE); Methadone NEGATIVE (NEGATIVE); Opiates NEGATIVE (NEGATIVE); Phencyclidine NEGATIVE (NEGATIVE); THC Cannibis NEGATIVE (NEGATIVE)
[2021-04-26 22:29] LABS: ALT/SGPT 60 U/L (12-78); AST/SGOT 51 U/L (15-37); Albumin 3.5 g/dL (3.4-5.0); Alkaline Phosphatase 70 U/L (45-117); BUN Blood Urea Nitrogen 20 mg/dL (7-18); Bicarbonate 23 mmol/L (21-32); Bilirubin Direct 0.2 mg/dL (0-0.2); Bilirubin Total 0.6 mg/dL (0.2-1.0); Glucose Level 167 mg/dL (74-106); Lipase 145 U/L (73-393); NT PRO-BNP 125 pg/mL (<125); Potassium 3.6 mmol/L (3.5-5.1); Protein, Total 7.9 g/dL (6.4-8.2); Sodium Level 142 mmol/L (136-145); Troponin (Emerg Dept Use Only) < 0.02 ng/mL (0.0-0.045)
[2021-04-26] MEDS ORDERED: MORPHINE 4 MG/ML SYR ONE (23:16)
--- NOTE | 2021-04-27 01:23 | EDPHYS ---
Physician Documentation [facility] Name: Seth Milligan Age: 46 yrs Sex: Male : 1975 Arrival Date: 04/26/2021 Time: 21:17 Bed 13 Private MD: ED Physician Richard Mesa HPI: 04/26 21:35 This 46 yrs old Male presents to ER via EMS with complaints of Drug Abuse. cp 04/27 21:35 The patient presents to the emergency department with a possible overdose, cocaine and cp alcohol. 21:35 Associated signs and symptoms: Pertinent positives: vomiting, abdominal pain, Pertinent cp negatives: chest pain. 46-year-old gentleman who presents to the emergency department with complaints of abdominal pain, nausea vomiting. Patient admits to consuming alcohol and cocaine for the past 2 days. Patient reports history of pancreatitis she reports pain feels similar.. Historical: - Allergies: 04/26 21:22 No Known Allergies; lp1 - Home Meds: 21:22 lisinopril Oral [Active]; lp1 - PMHx: 21:22 diabetes mellitus; Hypertension; hyperlipidemia; Pancreatitis; lp1 - PSHx: 21:22 None; lp1 - Immunization history:: Adult Immunizations up to date. - Social history:: Smoking status: Patient reports the use of cigarette tobacco products, denies chronic smoking, but will smoke occasionally. ROS: 21:40 Constitutional: Negative for body aches, chills, fever, poor PO intake. cp 21:40 Eyes: Negative for injury, pain, redness, and discharge. cp 21:40 ENT: Negative for ear pain, sore throat, difficulty swallowing, difficulty handling secretions. 21:40 Cardiovascular: Negative for chest pain, edema, palpitations. 21:40 Respiratory: Negative for cough, shortness of breath, wheezing. 21:40 Abdomen/GI: Positive for abdominal pain, nausea and vomiting, Negative for diarrhea, constipation, hematemesis, black/tarry stool, rectal bleeding. 21:40 Back: Negative for radiated pain. 21:40 Neuro: Negative for altered mental status, headache, numbness, syncope, weakness. 21:40 Psych: Negative for auditory hallucinations, visual hallucinations, homicidal ideation, suicide gesture, suicidal ideation. 21:40 All other systems are negative. Exam: 21:45 Constitutional: The patient appears in no acute distress, alert, awake, cp non-diaphoretic, non-toxic, well developed, well nourished, uncomfortable. 21:45 Head/Face: Normocephalic, atraumatic. cp 21:45 Eyes: Periorbital structures: appear normal, Conjunctiva: normal, no exudate, no injection, Sclera: no appreciated abnormality, Lids and lashes: appear normal, bilaterally. 21:45 ENT: External ear(s): are unremarkable, Nose: is normal, Mouth: Lips: moist, Oral mucosa: moist, Posterior pharynx: Airway: no evidence of obstruction, patent. 21:45 Chest/axilla: Inspection: normal, Palpation: is normal, no crepitus, no tenderness. 21:45 Cardiovascular: Rate: normal, Rhythm: regular, JVD: is not appreciated. 21:45 Respiratory: the patient does not display signs of respiratory distress, Respirations: normal, no use of accessory muscles, no retractions, labored breathing, is not present, Breath sounds: are clear throughout, no decreased breath sounds, no stridor, no wheezing. 21:45 Abdomen/GI: Inspection: abdomen appears normal, Bowel sounds: active, all quadrants, Palpation: soft, in all quadrants, moderate abdominal tenderness, in the epigastric area, rebound tenderness, is not appreciated, voluntary guarding, is elicited in the epigastric area. 21:45 Back: CVA tenderness, is absent. 21:45 Neuro: Orientation: to person, place \T\ time. Mentation: is normal, Motor: moves all fours, strength is normal, Sensation: no obvious gross deficits. 21:55 ECG was reviewed by the Attending Physician. cp Vital Signs: 21:20 BP 169 / 105; Pulse 88; Resp 18; Temp 98(O); Pulse Ox 100% on R/A; Weight 98.43 kg; lp1 Height 5 ft. 1 in. (154.94 cm); Pain 8/10; 21:24 BP 176 / 106; Pulse 88; Resp 19; Pulse Ox 99% on R/A; ld1 23:03 BP 166 / 101; Pulse 82; Resp 23; Pulse Ox 99% on R/A; ld1 12/10 00:00 BP 158 / 91; Pulse 78; Resp 20; Pulse Ox 99% on R/A; lp1 01:00 BP 146 / 72; Pulse 87; Resp 19; Pulse Ox 99% on R/A; lp1 02:19 BP 141 / 80; Pulse 78; Resp 19; Pulse Ox 98% on R/A; lp1 12 21:20 Body Mass Index 41.00 (98.43 kg, 154.94 cm) lp1 MDM: 04/26 21:26 Patient medically screened. cp 23:20 Data reviewed: vital signs, nurses notes, lab test result(s), EKG, radiologic studies, cp CT scan, plain films. Test interpretation: by ED physician or midlevel provider: ECG, plain radiologic studies. 04/27 01:22 Counseling: I had a detailed discussion with the patient and/or guardian regarding: the cp historical points, exam findings, and any diagnostic results supporting the discharge/admit diagnosis, lab results, radiology results, to return to the emergency department if symptoms worsen or persist or if there are any questions or concerns that arise at home. 01:22 Response to treatment: the patient's symptoms have markedly improved after treatment, cp and as a result, I will discharge patient. Special discussion: Based on the patient's Hx, exam, and Dx evaluation, there is no indication for emergent surgery or inpatient Tx. It is understood by the patient/guardian that if the Sx's persist or worsen they need to return immediately for re-evaluation. ED course: VSS. Pain markedly improved. CT abdomen/pelvis negative for acute findings. Patient clinically sober. Will discharge to home for continued monitoring. 04/26 21:27 Order name: Basic Metabolic Panel; Complete Time: 22:34 cp 04/26 22:34 Interpretation: Normal except: CL 108; GLUC 167; BUN 20. cp 04/26 21:27 Order name: CBC with Diff; Complete Time: 22:34 cp 04/26 22:36 Interpretation: Normal except: WBC 13.10; HGB 13.3; MPV 7.1; NEUT A 8.7. cp 04/26 21:27 Order name: LFT's; Complete Time: 22:34 cp 04/26 22:35 Interpretation: Normal except: AST 51; GLOB 4.4; A/G 0.8. cp 04/26 21:27 Order name: Magnesium; Complete Time: 22:34 cp 04/26 21:27 Order name: NT PRO-BNP; Complete Time: 22:34 cp 12 21:27 Order name: PT-INR; Complete Time: 22:34 cp 12 21:27 Order name: Troponin (emerg Dept Use Only); Complete Time: 22:34 cp 12 21:27 Order name: XRAY Chest (1 view) cp 04/26 21:27 Order name: UDS; Complete Time: 22:34 cp 12 22:35 Interpretation: Normal except: GISELA POSITIVE. cp 12/ 21:27 Order name: Lactate; Complete Time: 22:34 cp 12 22:36 Interpretation: Abnormal: LAC 2.9. cp 04/26 21:27 Order name: Lipase; Complete Time: 22:34 cp 04/26 21:40 Order name: ETOH Level; Complete Time: 22:34 cp 04/26 22:36 Interpretation: ETOH 207; Reviewed. 04/26 22:02 Order name: Urine Dipstick-Ancillary; Complete Time: 22:34 EDMS 04/26 22:36 Order name: CT Abd/Pelvis - IV Contrast Only cp 12 21:27 Order name: EKG; Complete Time: 21:28 cp 12 21:27 Order name: Cardiac monitoring; Complete Time: 21:28 cp 04/26 21:27 Order name: EKG - Nurse/Tech; Complete Time: 22:02 cp 12 21:27 Order name: IV Saline Lock; Complete Time: 22:02 12 21:27 Order name: Labs collected and sent; Complete Time: 22:02 cp 04/26 21:27 Order name: O2 Per Protocol; Complete Time: 21:28 cp 12 21:27 Order name: O2 Sat Monitoring; Complete Time: 21:28 cp EC 21:55 Rate is 76 beats/min. Rhythm is regular. DE interval is normal. QRS interval is normal. cp QT interval is normal. T waves are Inverted in lead aVR. T waves are Flattened in lead aVL. Interpreted by me. Reviewed by me. Administered Medications: 22:02 Drug: NS 0.9% 1000 ml Route: IV; Rate: 1 bolus; Site: left antecubital; ld1 04/27 02:20 Follow up: IV Status: Completed infusion; IV Intake: 1000ml lp1 04/26 22:02 Drug: Ativan (LORazepam) 1 mg Route: IVP; Site: left antecubital; ld1 22:02 Drug: Zofran (Ondansetron) 4 mg Route: IVP; Site: left antecubital; ld1 22:51 Drug: NS 0.9% 1000 ml Route: IV; Rate: 1 bolus; Site: left antecubital; ld1 04/27 02:19 Follow up: IV Status: Completed infusion; IV Intake: 1000ml lp1 04/26 22:51 Drug: NS 0.9% 1000 ml Route: IV; Rate: 1 bolus; Site: left antecubital; ld1 04/27 02:20 Follow up: IV Status: Completed infusion; IV Intake: 700ml lp1 04/26 23:22 Drug: morphine 4 mg Route: IVP; Site: left antecubital; ld1 23:22 Follow up: Response: No adverse reaction ld1 Disposition: 04/27 05:37 Co-signature as Attending Physician, Richard Mesa MD I agree with the assessment and rn plan of care. Attestation: The patient's history, exam findings, diagnostics, and a summary of any interventions or procedures was reviewed in detail with Ashutosh MAHONEY. Disposition Summary: 04/27/21 01:23 Discharge Ordered Location: Home cp Problem: new cp Symptoms: have improved cp Condition: Stable cp Diagnosis - Alcohol use, unspecified with intoxication cp - Cocaine abuse cp - Upper abdominal pain, unspecified cp Followup: cp - With: Private Physician - When: 1 - 2 days - Reason: Recheck today's complaints Discharge Instructions: - Discharge Summary Sheet cp - Abdominal Pain, Adult cp - Alcohol Intoxication cp - Cocaine Use Disorder cp Forms: - Medication Reconciliation Form cp - Thank You Letter cp - Antibiotic Education cp - Prescription Opioid Use cp Prescriptions: - Protonix 40 mg Oral Tablet - take 1 tablet by ORAL route once daily; 30 tablet; Refills: 0, Product cp Selection Permitted - Zofran 4 mg Oral Tablet - take 1 tablet by ORAL route every 12 hours As needed; 20 tablet; Refills: 0, cp Product Selection Permitted Signatures: Dispatcher [employer] Richard Reaves MD MD rn Pena, Laura, RN RN lp1 Page, Ashutosh, PA PA cp Dibbern, Gisselle, RN RN ld1 Corrections: (The following items were deleted from the chart) 04/26 22:36 22:35 Normal except: WBC 13.10; HGB 13.3; MPV 7.1. cp cp 04/28 01:54 04/27 23:20 Data reviewed: vital signs, nurses notes, lab test result(s), EKG, cp radiologic studies, CT scan, plain films, cp 04/28 01:54 04/27 23:20 Test interpretation: by ED physician or midlevel provider: ECG, plain cp radiologic studies, cp
--- NOTE | 2021-04-27 01:23 | ER ---
Nurse's Notes [facility] Name: Seth Milligan Age: 46 yrs Sex: Male : 1975 Arrival Date: 04/26/2021 Time: 21:17 Bed 13 Private MD: Diagnosis: Alcohol use, unspecified with intoxication;Cocaine abuse;Upper abdominal pain, unspecified Presentation: 04/26 21:20 Chief complaint: EMS states: Called for patient not feeling good after reported ETOH lp1 and cocaine use x 2 days; Reports RUQ abdominal pain, hx of pancreatitis. Coronavirus screen: At this time, the client does not indicate any symptoms associated with coronavirus-19. Ebola Screen: No symptoms or risks identified at this time. Initial Sepsis Screen: Does the patient meet any 2 criteria? No. Patient's initial sepsis screen is negative. Does the patient have a suspected source of infection? No. Patient's initial sepsis screen is negative. Risk Assessment: Do you want to hurt yourself or someone else? Patient reports no desire to harm self or others. Onset of symptoms was April 26, 2021. 21:20 Method Of Arrival: EMS: [facility] lp1 21:20 Acuity: FRANK 3 lp1 21:22 Care prior to arrival: Medication(s) given: Normal saline infusion, 1000 mL, IV lp1 initiated. 20 GA, in the left antecubital area. Triage Assessment: 21:24 Neuro: Level of Consciousness is awake, alert, obeys commands. Respiratory: Respiratory lp1 effort is even, unlabored. GI: Reports upper abdominal pain. Derm: Skin is pink, warm \\T\\ dry. Historical: - Allergies: 21:22 No Known Allergies; lp1 - Home Meds: 21:22 lisinopril Oral [Active]; lp1 - PMHx: 21:22 diabetes mellitus; Hypertension; hyperlipidemia; Pancreatitis; lp1 - PSHx: 21:22 None; lp1 - Immunization history:: Adult Immunizations up to date. - Social history:: Smoking status: Patient reports the use of cigarette tobacco products, denies chronic smoking, but will smoke occasionally. Screenin:23 Abuse screen: Denies threats or abuse. Denies injuries from another. Nutritional lp1 screening: No deficits noted. Tuberculosis screening: No symptoms or risk factors identified. Fall Risk None identified. Assessment: 21:24 General: Appears in no apparent distress. comfortable, Behavior is calm, cooperative, ld1 appropriate for age. Pain: Complains of pain in abdomen Pain does not radiate. Pain currently is 8 out of 10 on a pain scale. Pain began suddenly, Is continuous. Neuro: Level of Consciousness is awake, alert, obeys commands, Oriented to person, place, time, situation, Appropriate for age. Cardiovascular: Capillary refill < 3 seconds Patient's skin is warm and dry. Rhythm is sinus rhythm. Respiratory: Airway is patent Respiratory effort is even, unlabored, Respiratory pattern is regular, symmetrical. GI: Abdomen is round non-distended, Reports lower abdominal pain, upper abdominal pain, nausea. : No signs and/or symptoms were reported regarding the genitourinary system. EENT: No signs and/or symptoms were reported regarding the EENT system. Derm: No signs and/or symptoms reported regarding the dermatologic system. Musculoskeletal: No signs and/or symptoms reported regarding the musculoskeletal system. 23:03 Reassessment: Patient appears in no apparent distress at this time. No changes from ld1 previously documented assessment. Patient and/or family updated on plan of care and expected duration. Pain level reassessed. Patient is alert, oriented x 3, equal unlabored respirations, skin warm/dry/pink. 04/27 00:20 Reassessment: Patient appears in no apparent distress at this time. Patient reports "I lp1 need some more of that medicine to make me peaceful". Neuro: Level of Consciousness is awake, alert, obeys commands. Respiratory: Respiratory effort is even, unlabored. Derm: Skin is intact, Skin is dry, Skin is normal. 02:18 Reassessment: Patient appears in no apparent distress at this time. Patient is alert, lp1 oriented x 3, equal unlabored respirations, skin warm/dry/pink. Neuro: Gait is steady. 02:19 Reassessment: Taxi arrived for patient discharge. lp1 Vital Signs: 04/26 21:20 BP 169 / 105; Pulse 88; Resp 18; Temp 98(O); Pulse Ox 100% on R/A; Weight 98.43 kg; lp1 Height 5 ft. 1 in. (154.94 cm); Pain 8/10; 21:24 BP 176 / 106; Pulse 88; Resp 19; Pulse Ox 99% on R/A; ld1 23:03 BP 166 / 101; Pulse 82; Resp 23; Pulse Ox 99% on R/A; ld1 12 00:00 BP 158 / 91; Pulse 78; Resp 20; Pulse Ox 99% on R/A; lp1 01:00 BP 146 / 72; Pulse 87; Resp 19; Pulse Ox 99% on R/A; lp1 02:19 BP 141 / 80; Pulse 78; Resp 19; Pulse Ox 98% on R/A; lp1 12 21:20 Body Mass Index 41.00 (98.43 kg, 154.94 cm) lp1 ED Course: 04/26 21:17 Patient arrived in ED. wm 21:20 Ashutosh Jackson PA is PHCP. cp 21:20 Richard Mesa MD is Attending Physician. cp 21:21 Triage completed. lp1 21:22 Arm band placed on right wrist. lp1 21:23 Patient has correct armband on for positive identification. Bed in low position. Call lp1 light in reach. phototypesetting equipment monitor on. Pulse ox on. NIBP on. 21:24 Maintain EMS IV. Dressing intact. Good blood return noted. Site clean \\T\\ dry. Gauge \\T\\ lp 1 site: 20g to L AC. 21:24 No provider procedures requiring assistance completed. ld1 21:59 Gisselle Hoang, RN is Primary Nurse. ld1 22:02 XRAY Chest (1 view) In Process Unspecified. EDMS 22:18 ETOH Level Sent. mh5 22:18 Initial lab(s) drawn, by ED staff, sent to lab. Urine collected: clean catch specimen, 5 clear, EKG done, by ED staff, reviewed by Ashutosh MAHONEY. 22:55 CT Abd/Pelvis - IV Contrast Only In Process Unspecified. EDMS 23:30 Report received from BRIGID Pitts. lp1 04/27 00:12 Primary Nurse role handed off by Gisselle Hoang, BRIGID cs9 00:20 Teresa Gooden, BRIGID is Primary Nurse. lp1 02:19 IV discontinued, No redness/swelling at site. Pressure dressing applied. lp1 Administered Medications: 04/26 22:02 Drug: NS 0.9% 1000 ml Route: IV; Rate: 1 bolus; Site: left antecubital; ld1 04/27 02:20 Follow up: IV Status: Completed infusion; IV Intake: 1000ml lp1 04/26 22:02 Drug: Ativan (LORazepam) 1 mg Route: IVP; Site: left antecubital; ld1 22:02 Drug: Zofran (Ondansetron) 4 mg Route: IVP; Site: left antecubital; ld1 22:51 Drug: NS 0.9% 1000 ml Route: IV; Rate: 1 bolus; Site: left antecubital; 1 04/27 02:19 Follow up: IV Status: Completed infusion; IV Intake: 1000ml lp1 04/26 22:51 Drug: NS 0.9% 1000 ml Route: IV; Rate: 1 bolus; Site: left antecubital; 1 04/27 02:20 Follow up: IV Status: Completed infusion; IV Intake: 700ml 1 04/26 23:22 Drug: morphine 4 mg Route: IVP; Site: left antecubital; ld1 23:22 Follow up: Response: No adverse reaction ld1 Intake: 04/27 02:19 IV: 1000ml; Total: 1000ml. lp1 02:20 IV: 1000ml; Total: 2000ml. lp1 02:20 IV: 700ml; Total: 2700ml. lp1 Outcome: 01:23 Discharge ordered by MD. cp 02:19 Discharged to home ambulatory. lp1 02:19 Condition: good 02:19 Discharge instructions given to patient, Instructed on discharge instructions, follow up and referral plans. medication usage, Demonstrated understanding of instructions, follow-up care, medications, Prescriptions given X 2. 02:20 Patient left the ED. lp1 Signatures: Dispatcher [employer] EDMS Teresa Gooden, RN RN lp1 Ashutosh Jackson PA PA cp Martinez, Maria [facility] Gisselle Hoang RN RN ld1 Keila Pink Christine 9
[2021-04-27 02:31] VITALS: TEMP 98
[2021-04-27 02:38] VITALS: BP 141/80; O2SAT 98
--- NOTE | 2021-04-27 08:09 | RAD REPORT ---
EXAM DESCRIPTION: RAD - Chest Single View - 04/26/2021 10:02 pm CLINICAL HISTORY: abdominal pain COMPARISON: February 02 TECHNIQUE: AP portable chest image was obtained 04/26/2021 10:02 pm . FINDINGS: Lungs are clear. Right hemidiaphragm elevation again noted. Heart and vasculature are norm al. No measurable pleural effusion and no pneumothorax. No acute bony abnormality seen. No acute aort ic findings suspected. IMPRESSION: No acute cardiopulmonary process. No significant change from comparison study.
--- NOTE | 2021-04-27 11:53 | RAD REPORT ---
EXAM DESCRIPTION: CT - Abdomen Pelvis W Contrast - 04/27/2021 4:47 am CLINICAL HISTORY: The patient is 46 years old and is Male; ABD PAIN TECHNIQUE: Axial computed tomography images of the abdomen and pelvis with intravenous contrast. S agittal and coronal reformatted images were created and reviewed. This CT exam was performed using one or more of the following dose reduction techniques: automated exposure control, adjustment of t he mA and/or kV according to patient size, and/or use of iterative reconstruction technique. DLP: 1296 mGy*cm COMPARISON: CT abdomen and pelvis dated 02/03/2021. FINDINGS: LUNG BASES: Lung bases are clear. HEART: Visualized heart is normal. ABDOMEN: LIVER: Unremarkable. No mass. GALLBLADDER AND BILE DUCTS: Unremarkable. No calcified stones. No ductal dilation. PANCREAS: Unremarkable. No mass. No ductal dilation. SPLEEN: Unremarkable. No splenomegaly. ADRENALS: Unremarkable. No mass. KIDNEYS AND URETERS: Unremarkable. No solid mass. No hydronephrosis. STOMACH AND BOWEL: Mild sigmoid diverticulosis. No acute diverticulitis. No obstruction. PELVIS: APPENDIX: No findings to suggest acute appendicitis. BLADDER: Unremarkable. No mass. REPRODUCTIVE: Unremarkable as visualized. ABDOMEN and PELVIS: INTRAPERITONEAL SPACE: Unremarkable. No free air. No significant fluid collection. BONES/JOINTS: Lower lumbar facet arthropathy. No acute fracture. No dislocation. SOFT TISSUES: Unremarkable. VASCULATURE: Mild vascular calcifications. No abdominal aortic aneurysm. LYMPH NODES: Unremarkable. No enlarged lymph nodes. IMPRESSION: 1. No acute abdominal or pelvic abnormality. No CT evidence of acute pancreatitis. 2. Mild sigmoid diverticulosis. No acute diverticulitis. Electronically signed by: Torin Mitchell DO 04/26/2021 11:17 PM RESEARCH INSTRUCTOR Due to temporary technical issues with the PACS/Fluency reporting system, reports are being signed by the in house radiologist without review as a courtesy to ensure prompt reporting. The interpreting r adiologist is fully responsible for the content of the report.
== END 2021-04-27 02:20 | disposition home or self-care (01) ==
LOC: ER 21:15
DX: F10.929 Alcohol use, unspecified with intoxication, unspecified (principal); F14.10 Cocaine abuse, uncomplicated; I10 Essential (primary) hypertension; F17.210 Nicotine dependence, cigarettes, uncomplicated
CPT/HCPCS: 96361; 93005; 85025; 80048; 36415; 80320; 83735; 85610; 80076; 83605; 81003; 84484; 83690; 83880; 80307; 74177; 71045; 96375; 96374; 99285; Q9967; J7030 ×2; J2405